=== PATIENT | female | born 2000 | race Two or more races ===

== ENCOUNTER 2024-11-12 23:05 | Emergency (ER) | payer MEDICAID, SELFPAY ==
[2024-11-12 23:24] VITALS: PULSE 95; RESP 18; O2SAT 99; BMI 34.9
[2024-11-13] VITALS (7 sets, daily range): BP systolic 117–138; BP diastolic 76–99; PULSE 84–96; RESP 18; TEMP 36.9; O2SAT 98–99
--- NOTE | 2024-11-13 00:13 | EDNOTE_ITS ---
ED Weakness RME/HPI General Chief complaint: Weakness Stated complaint: WEAKNESS Time Seen by Provider: 11/12/24 23:14 Arrival date/time: 11/12/24 23:05 RME / HPI RME / HPI Narrative: Dr. Us?s Main ED Evaluation: 24yo female with a history of seizure disorder on Keppra 500mg BID BIBA from home presents to the ED for a chief complaint of an oncoming seizure. Patient states she started feeling dizzy and having blurry vision, reporting those are the usual symptoms before she has a seizure, so she called 911 so she could come in for evaluation. Patient states she currently has a stabbing temporal headache. She denies any other associated symptoms. Patient states she is in the process of seeing a new neurologist and has an appointment later this month. Related Data Home Medications ?Medication ?Instructions ?Recorded ?Confirmed No Known Home Medications 10/21/21 10/21/21 Allergies Allergy/AdvReac Type Severity Reaction Status Date / Time sulfamethoxazole Allergy Mild Palpitation Verified 10/21/21 13:02 s trimethoprim Allergy Mild Palpitation Verified 10/21/21 13:02 s Review of Systems Review of Systems Systems Reviewed: All systems reviewed, normal except as documented ED Exam Narrative Physical exam: GENERAL APPEARANCE: alert and oriented x 4, well-developed, well-nourished, no acute distress VITALS: All vitals were reviewed and the pulse ox is 99% on room air, which is normal according to my interpretation. HEENT: Normocephalic, atraumatic; pupils equal, round, reactive to light; EOMI; mucous membranes pink, moist; oropharynx clear NECK: Supple LUNGS: CTABL; no wheezes, no rales, no rhonchi HEART: Regular rate, regular rhythm; normal S1, S2; no murmurs ABDOMEN: non distended; normal BS; soft, no tenderness, no guarding, no rebound; no masses, no organomegaly, no hernia BACK: no CVA tenderness EXTREMITIES: atraumatic; no edema NEUROLOGIC: awake; alert and oriented x4; cranial nerves II-XII grossly intact; no focal sensory or motor deficits PSYCHIATRIC: appropriate mood and affect SKIN: warm, dry, normal color; no rashes Course Course Course Narrative: The patient was placed in ED observation care at 11/12/24 at 2339 hours. The patient was placed in ED observation care to monitor for any seizure activity. The patients past medical history, social history, and family history were reviewed. The plan of care will include serial examinations. 0326: Patient has been under observation for the last several hours without any seizure activity. Patient is stable to be discharged home. At this time, observation has ended. Quality Measures none Orders Category Date Time Status Fibreglass Laminator Q4H START 00 Care 11/13/24 00:29 Completed Continuous Pulse Oximetry NOW Care 11/13/24 00:29 Completed Acetaminophen Ivpb [Ofirmev Inj] Med 11/12/24 23:15 Discontinued 1,000 mg in 100 ml IV X1 Ketorolac Inj [Toradol Inj] Med 11/12/24 23:14 Discontinued 15 mg IVP X1 ONE LORazepam [Ativan] Med 11/13/24 01:31 Discontinued 0.5 mg PO X1 ONE Lidocaine 5% Patch Med 11/12/24 23:14 Discontinued 1 patch TOP X1 ONE Vital Signs Vital signs: Vital Signs Temperature 98.4 F 11/13/24 00:39 Pulse Rate 87 11/13/24 00:39 Respiratory Rate 18 11/13/24 00:39 Blood Pressure 131/87 H 11/13/24 00:39 Pulse Oximetry (%) 98 11/13/24 00:39 Oxygen Delivery Method Room Air 11/13/24 00:39 Weakness MDM Narrative MDM Narrative:: Scribe Attestation: 11/13/24 Elise Salvador am scribing for and in the presence of Dr. Us. Patient data External records reviewed:: [facility] previous records (Per chart review, patient was seen here on 05/21/24 for seizure disorder.) Clinical information provided by:: patient Social determinants that could affect healthcare access:: mental health Patient has the following chronic illnesses:: seizures, antiphospholipid syndrome, anxiety How is presenting disease/condition affected by chronic disease/condition?: caused by Evaluation data The following diagnostics were reviewed and interpreted by me:: other (specify) (none) Lab and/or radiology exams considered but not ordered:: none Interpretation Summary: see above Medications / Prescriptions Medications or Prescriptions considered but not ordered:: none Medication administrations:: Medication Administration History Discontinued Medications Acetaminophen (Ofirmev Inj) 1,000 mg in 100 mls @ 250 mls/hr IV X1 ONE Stop: 11/12/24 23:38 Last Admin: 11/12/24 23:21 Dose: Not Given Documented By: PHYLICIA Non-Admin Reason: Discontinued Ketorolac Tromethamine (Ketorolac Inj 30 Mg/Ml Vial) 15 mg IVP X1 ONE Stop: 11/12/24 23:15 Last Admin: 11/12/24 23:20 Dose: Not Given Documented By: PHYLICIA Non-Admin Reason: Cancelled by Provider Lidocaine (Lidocaine 5% 1 Patch) 1 patch TOP X1 ONE Stop: 11/12/24 23:15 Last Admin: 11/12/24 23:20 Dose: Not Given Documented By: PHYLICIA Non-Admin Reason: Cancelled by Provider Lorazepam (Lorazepam 0.5 Mg Tablet) 0.5 mg PO X1 ONE Stop: 11/13/24 01:32 Last Admin: 11/13/24 01:53 Dose: 0.5 mg Documented By: KAYODE see above Consultations Consultation(s) initiated? (list below): No Diagnosis Weakness Differential Diagnosis: other (seizure disorder, anxiety, panic attack, anxiety reaction) Most likely diagnosis given after review of the tests above:: see above Admission Indicated Admission indicated?: not indicated Admission Request Was there a request for admission?: No Disposition Plan Disposition Plan: Discharge Discharge Attestation Discharge Attestation: The patient and all family members were given an opportunity to ask questions and understood the discharge instructions. Discharge instructions specifically effects, indications for sooner follow up or return to the emergency department, and the expected course of current diagnosis. Patient condition: Stable Discharge Plan Plan Patient Disposition: HOME (Self Care) Disposition Comment: Stable for discharge Patient condition on transfer: Stable Prescriptions/Referrals Prescriptions/Med Rec: No Action No Known Home Medications Referrals: Irma Bernal PA-C [Primary Care Provider] - In 1 week Problem List Clinical Impression: Aura Patient/Caregiver Discharge Instructions Discharge Activity: activity as tolerated Education Materials: ED Symptoms With Uncertain Cause Additional Instructions: Please return to the emergency department for any worsening or any further medical problems Otherwise you should follow-up with your primary care doctor within the next several days Print Language: Malawian Stand Alone Forms: Vane Award Info., Patient Portal Info Letter
[2024-11-13] MEDS: LORazepam 0.5 MG TABLET PO (01:53)
== END 2024-11-13 04:32 | disposition home or self-care (01) ==
PROVIDERS: Emergency Provider Emergency Medicine; PCP Physician Assistant
DX: H70.10 Chronic mastoiditis, unspecified ear (principal)
CPT/HCPCS: 99283; A9270

== ENCOUNTER 2025-03-08 17:03 | Emergency (ER) | payer MEDICAID, SELFPAY ==
[2025-03-08 17:05] VITALS: BMI 34.9
--- NOTE | 2025-03-08 17:14 | EKG_ITS ---
[facility] Test Date: 2025-03-08 Pat Name: TAYLOR MCKEON Department: Room: - Gender: Female Supervisor [employer]: : 2000 Requested By: ED Temporary Provider Order Number: [id number] Reading MD: ED Temporary Provider Measurements Intervals [place] Rate: 65 P: 43 NH: 155 QRS: 29 QRSD: 80 T: 18 QT: 356 QTc: 372 Interpretive Statements SINUS RHYTHM Compared to ECG 05/21/2024 14:54:02 T-wave abnormality no longer present /store/S0/[id number]
[2025-03-08 17:25] VITALS: BP 140/96; PULSE 73; RESP 16; TEMP 37.2; O2SAT 96
--- NOTE | 2025-03-08 17:40 | XR_ITS ---
Examination: PA lateral chest 2 views TECHNIQUE: Upright PA lateral chest 2 views Exam date and time: March 08, 2025, 1817 hours INDICATIONS: Dizziness weakness chest pain today FINDINGS: Normal heart size Lungs are clear. The osseous structures are intact IMPRESSION: No active disease
--- NOTE | 2025-03-08 17:41 | PD.EDRME ---
Rapid Medical Screening Exam RME Arrival date/time: 03/08/25 17:03 This is a 24-year-old female that has a history of epilepsy. Patient states that she was recently seen by Dr. Laird public health sanitarian technician and is currently being worked up for a possible atrial thrombus patient has a echo at hand. There is also suspicion of a tricuspid valve vegetation. Patient denies fever or chills. Patient reports dizziness and shortness of breath. I have greeted and performed a focused initial assessment of this patient. Initial appropriate labs ordered at this time. A comprehensive ED assessment and evaluation of the patient and analysis of all test and completion of medical decision making process will be conducted by additional ED provider. Chief Complaint: Chest Pain Time Seen by Provider: 03/08/25 17:06 Vital signs: Vital Signs Temperature 99.0 F 03/08/25 17:25 Pulse Rate 73 03/08/25 17:25 Respiratory Rate 16 03/08/25 17:25 Blood Pressure 140/96 H 03/08/25 17:25 Pulse Oximetry (%) 96 03/08/25 17:25 Oxygen Delivery Method Room Air 03/08/25 17:25
[2025-03-08 18:06] LABS: Lactate (Lactic Acid) 1.7 mMol/L (0.4-2.0)
[2025-03-08 18:09] LABS: Basophils % (Auto) 0 % (0-2.5); Eosinophils # (Auto) 0.2 Thou/mm3 (0.0-0.5); Eosinophils % (Auto) 2 % (0-10); Hematocrit 41.1 % (36.0-46.0); Immature Granulocytes % (Auto) 1 % (0-0); Immature Granulocytes Auto 0.04 Thou/mm3 (0.00-0.00); Lymphocytes # (Auto) 1.9 Thou/mm3 (1.0-4.8); Lymphocytes % (Auto) 23 % (10-50); Mean Corpuscular HGB Conc 34.1 g/dl (31.0-37.0); Mean Corpuscular Hemoglobin 26.2 pg (25.0-35.0); Mean Corpuscular Volume 77 fL (80-100); Monocytes # (Auto) 0.6 Thou/mm3 (0.0-0.8); Monocytes % (Auto) 7 % (0-12); Neutrophils # (Auto) 5.4 Thou/mm3 (1.8-7.7); Neutrophils % (Auto) 67 % (37-80); Nucleated Red Blood Cell % 0 /100 WBC (0); Platelet Count 117 Thou/mm3 (140-440); RDW Standard Deviation 37.1 fL (36.4-46.3); Red Blood Count 5.35 Miln/mm3 (4.00-5.20); White Blood Count 8.2 Thou/mm3 (3.6-11.0)
[2025-03-08 18:25] LABS: B-Type Natriuretic Peptide 43 pg/mL (0-100)
[2025-03-08 18:27] LABS: Alanine Aminotransferase 51 U/L (10-49); Albumin, Serum 4.7 gm/dL (3.5-5.0); Albumin/Globulin Ratio 1.7 (1.2-2.2); Alkaline Phosphatase 102 U/L (46-116); Anion Gap 8 (7-16); Aspartate Amino Transferase 32 U/L (0-34); BUN/Creatinine Ratio 7 Ratio (12-20); Bilirubin,Total 0.9 mg/dL (0.3-1.2); Blood Urea Nitrogen 5 mg/dL (9-23); Calcium 9.7 mg/dL (8.3-10.6); Calcium (Corrected) 9.7 mg/dL (8.5-10.1); Carbon Dioxide 25.3 mMol/L (20.0-31.0); Chloride 104 mMol/L (98-107); Creatinine (Component) 0.7 mg/dL (0.6-1.3); Estimated Creatinine Clearance 95.9 mL/min (>60); Globulin 2.8 gm/dL (2.3-3.5); Glucose 93 mg/dL (74-106); Osmolality,Calculated 271 (275-295); Potassium 3.8 mMol/L (3.4-5.1); Sodium 137 mMol/L (136-145); Total Protein 7.5 gm/dL (5.7-8.2); Troponin I < 0.002 ng/mL (0.0-0.045); eGFR > 60 See Note
[2025-03-08 18:34] LABS: Procalcitonin 0.06 ng/ml (0.0-0.49)
--- NOTE | 2025-03-08 20:46 | PD.EDCHEST ---
ED Chest Pain RME/HPI General Chief Complaint: Chest Pain Stated Complaint: INTERMITTENT CHEST PAIN Time Seen by Provider: 03/08/25 17:06 Arrival date/time: 03/08/25 17:03 RME / HPI RME / HPI narrative: 24-year-old female that has a history of epilepsy. Patient states that she was recently seen by Dr. Laird residential building inspector and is currently being worked up for a possible atrial thrombus patient has a echo at hand. There is also suspicion of a tricuspid valve vegetation. Patient denies fever or chills. Patient reports dizziness and shortness of breath. Denies any cough. Denies any other complaints. Related Data Home Medications ?Medication ?Instructions ?Recorded ?Confirmed No Known Home Medications 10/21/21 10/21/21 Allergies Allergy/AdvReac Type Severity Reaction Status Date / Time sulfamethoxazole Allergy Mild Palpitation Verified 03/08/25 17:07 s trimethoprim Allergy Mild Palpitation Verified 03/08/25 17:07 s Review of Systems Review of Systems Narrative Review of Systems: Review of system reviewed and within normal limits except mentioned in HPI ED Exam Narrative Physical exam: VITAL SIGNS: Reviewed. GENERAL APPEARANCE: Alert and interactive, follows commands, no acute distress, HEAD AND FACE: Non-traumatic. ENT: PERRL, pink conjunctivitis, eyelid no trauma, Mucous membrane moist. NECK: Supple, nontender, no nuchal rigidity. CHEST: No tenderness, no crepitus, no paradoxical movement, no retractions. LUNGS: Clear, well ventilated, symmetric, no rales, no wheezing, no ronchi, no stridor, good breath sounds bilaterally. HEART: Regular rate, regular rhythm, no murmur, no gallops. ABDOMEN: Soft, positive bowel sounds, nondistended, no guarding, nontender, no rebound, no masses, RECTAL: Deferred. GENITAL: Deferred. NEUROLOGICAL: Gross motor function intact sensory function intact, Appropriate for age. MUSCULOSKELETAL: low back nontender, full range of motion. EXTREMITIES: Nontender, full range of motion. SKIN: Color pink, dry, no rash, no lacerations, no abrasions, no contusions. LYMPHATICS: Deferred. Course Quality Measures none Orders Category Date Time Status EKG (ED ONLY) *Do not use* NOW Care 03/08/25 17:14 Completed EKG (ED Only) Stat Exams 03/08/25 17:14 Draft XR chest 2V Stat Exams 03/08/25 17:40 Completed BNP [B-Type Natriuretic Peptide] Stat Lab 03/08/25 17:53 Completed Blood Culture (Lab) Stat Lab 03/08/25 17:58 Received CBC Stat Lab 03/08/25 17:53 Completed Comprehensive Metabolic Panel Stat Lab 03/08/25 17:53 Completed Lactate (Lactic Acid) Stat Lab 03/08/25 17:53 Completed Procalcitonin Stat Lab 03/08/25 17:53 Completed Troponin I Stat Lab 03/08/25 17:53 Completed Vital Signs Vital signs: Vital Signs Temperature 99.0 F 03/08/25 17:25 Pulse Rate 73 03/08/25 17:25 Respiratory Rate 16 03/08/25 17:25 Blood Pressure 140/96 H 03/08/25 17:25 Pulse Oximetry (%) 96 03/08/25 17:25 Oxygen Delivery Method Room Air 03/08/25 17:25 Chest Pain MDM Narrative MDM Narrative:: 24-year-old female that has a history of epilepsy. Patient states that she was recently seen by Dr. Laird residential building inspector and is currently being worked up for a possible atrial thrombus patient has a echo at hand. There is also suspicion of a tricuspid valve vegetation. Patient denies fever or chills. Patient reports dizziness and shortness of breath. Denies any cough. Denies any other complaints. Patient's CBC showed no leukocytosis. CMP unremarkable troponin is normal Pro-Alec is normal chest x-ray came back unremarkable EKG as interpreted by me showed sinus rhythm, ventricular rate of 65 bpm, no ST segment elevation depression noted. Patient was advised to follow-up with residential building inspector in 1 to 2 days probably Monday or return to emergency room for fever, worsening chest pain, vomiting, and shortness of breath. Patient agrees with the plan. 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 (list below): No Diagnosis Chest Pain Differential Diagnosis: stable angina and chest pain Most likely diagnosis given after review of the tests above:: Intermittent chest pain Admission Indicated Admission indicated?: not indicated Admission Request Was there a request for admission?: No Disposition Plan Disposition Plan: Discharge Discharge Attestation Discharge Attestation: The patient was given an opportunity to ask questions and understood the discharge instructions. Discharge instructions specifically effects, indications for sooner follow up or return to the emergency department, and the expected course of current diagnosis. Patient condition: Stable Discharge Plan Plan Patient Disposition: HOME (Self Care) Prescriptions/Referrals Prescriptions/Med Rec: No Action No Known Home Medications Referrals: Irma Bernal PA-C [Primary Care Provider] - In 1 week Problem List Clinical Impression: Intermittent chest pain Patient/Caregiver Discharge Instructions Discharge Activity: activity as tolerated Education Materials: Understanding the Pain Response Additional Instructions: Thank you for the opportunity for serving you today. You are stable for discharged . You are advised to: Follow-up with your residential building inspector in 1 to 2 days Return to ED for worsening of symptoms Print Language: Croatian Stand Alone Forms: Vane Award Info., Patient Portal Info Letter MARCOS Supervising Physician MARCOS Supervising Physician: MD Fay
== END 2025-03-08 20:55 | disposition home or self-care (01) ==
PROVIDERS: Nurse Practitioner Family; Emergency Provider Emergency Medicine; PCP Physician Assistant
DX: R07.89 Other chest pain (principal); R42 Dizziness and giddiness; R53.1 Weakness
CPT/HCPCS: 36415; 71046; 80053; 83605; 83880; 84145; 84484; 85025; 87040; 93005; 99283

== ENCOUNTER 2025-09-26 18:50 | Inpatient (IN) | payer MEDICAID, SELFPAY ==
[2025-09-26 18:52] VITALS: BMI 38.0
[2025-09-26 19:10] VITALS: BP 142/97; PULSE 83; RESP 18; TEMP 36.8; O2SAT 97
--- NOTE | 2025-09-26 19:40 | EDRME_ITS ---
Rapid Medical Screening Exam [facility] Arrival date/time: 09/26/25 18:50 Chief Complaint: Seizure Vital signs: Vital Signs Temperature 98.2 F 09/26/25 19:10 Pulse Rate 83 09/26/25 19:10 Respiratory Rate 18 09/26/25 19:10 Blood Pressure 142/97 H 09/26/25 19:10 Pulse Oximetry (%) 97 09/26/25 19:10 Oxygen Delivery Method Room Air 09/26/25 19:10 RM Narrative: 24-year-old female with a past medical history of multifocal epileptic seizures who is currently on Aptiom 1200 mg daily, Keppra 500 mg daily and this was raised by Dr. Orta last in July from 800 to this as she was been having breakthrough seizures for this year. Patient endorses that she remains conscious during her seizures she has had about 3 seizures at day for the past 3 days all lasting about 30 minutes at a time, and her sister told her that she seems really out of it so she wanted her to come here and get checked out she states that now she does not lose consciousness with her seizures but she feels short of breath dizzy and feels a heat sensation. Patient states that she feels hot but denies any cough, head injury, chest pain, vision changes, numbness, tingling, weakness or urinary symptoms. Past medical history of antiphospholipid syndrome on Plaquenil as well as an arterial thrombus on Eliquis Exam: Constitutional: Vital Signs Reviewed. Well appearing. No acute distress. Not toxic appearing. Head: Normocephalic, atraumatic. Eyes: Conjunctiva clear. ENT: Mucous membranes moist. Neck: Trachea midline. Normal range of motion. No nuchal rigidity. Respiratory: Normal effort. No respiratory distress or accessory muscle use. Neuro: Alert and oriented. Speech normal. No focal gross motor or sensory deficits observed. Skin: Warm, dry, normal color. Psych: Pleasant. Normal affect. Cooperative. Clinical Impression: Breakthrough seizures
--- NOTE | 2025-09-26 19:43 | XR_ITS ---
EXAMINATION: PA lateral chest 2 views TECHNIQUE: PA lateral chest 2 views Date and time: September 26, 2025, 2032 hours INDICATIONS: Shortness of breath today. FINDINGS: Normal heart size No lobar pneumonia or pulmonary edema 29 mm pulmonary mass which projects in the right middle lobe The [place] structures are intact IMPRESSION: Recommend CT chest follow-up to assess 29 mm pulmonary mass which projects in the right middle lobe
--- NOTE | 2025-09-26 19:43 | XR_ITS ---
Examination: CT brain head without contrast. 2-D sagittal coronal reconstructions Date and time of exam: September 26, 2025, 195 hours, comparison December 07, 2023 INDICATIONS: Headache status post seizure today, seizure 3 years ago CTDI: vol (mGy): 48.7 DLP: (mGycm): 959 Technique: Multiple CT axial sections of the brain have been obtained, 5 mm slice thickness. Contrast has not been administered. 2-D sagittal, coronal reconstructions have been obtained Low dose protocols were performed. One or more of the following dose reduction techniques were used; automated exposure control, adjustment of the mA and/or KV according to patient size, use of iterative reconstruction technique. Findings: Stable mild ventricular enlargement. Intra-axial or extra-axial hemorrhage density is not seen. No mass effect or midline shift Basal cisterns are not remarkable. Fourth ventricle is midline. Cranial vault intact. Impression: Negative for acute hemorrhage, mass effect or midline shift Consider repeat brain MRI follow-up pre and post contrast, seizure protocol
--- NOTE | 2025-09-26 19:43 | EKG_ITS ---
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
[2025-09-26 20:42] LABS: Basophils # (Auto) 0.0 Thou/mm3 (0.0-0.2); Basophils % (Auto) 0 % (0-2.5); Eosinophils # (Auto) 0.1 Thou/mm3 (0.0-0.5); Eosinophils % (Auto) 2 % (0-10); Hematocrit 41.2 % (36.0-46.0); Hemoglobin 13.8 g/dL (12.0-16.0); Immature Granulocytes Auto 0.02 Thou/mm3 (0.00-0.00); Lymphocytes # (Auto) 1.7 Thou/mm3 (1.0-4.8); Lymphocytes % (Auto) 22 % (10-50); Mean Corpuscular HGB Conc 33.5 g/dl (31.0-37.0); Mean Corpuscular Hemoglobin 25.8 pg (25.0-35.0); Mean Corpuscular Volume 77 fL (80-100); Monocytes # (Auto) 0.6 Thou/mm3 (0.0-0.8); Monocytes % (Auto) 8 % (0-12); Neutrophils # (Auto) 5.3 Thou/mm3 (1.8-7.7); Neutrophils % (Auto) 68 % (37-80); Nucleated Red Blood Cell # 0.00 Thou/mm3 (0.00-0.00); Nucleated Red Blood Cell % 0 /100 WBC (0); Platelet Count 101 Thou/mm3 (140-440); RDW Standard Deviation 34.9 fL (36.4-46.3); Red Blood Count 5.35 Miln/mm3 (4.00-5.20); White Blood Count 7.8 Thou/mm3 (3.6-11.0)
[2025-09-26 20:42] LABS: Collection Type, Urine Voided
[2025-09-26 21:01] LABS: INR 1.0 (0.9-1.3); Partial Thromboplastin Time 40.2 Seconds (22.0-36.0); Prothrombin Time 11.0 Seconds (9.0-12.2)
[2025-09-26 21:09] LABS: Amphetamine/Methamp Scrn,U Negative (Negative); Barbiturate Screen,Urine Negative (Negative); Benzodiazepines Screen,Urine Negative (Negative); Benzoylecgonine Screen, Ur Negative (Negative); Fentanyl Screen,Urine Negative (Negative); Opiate Screen,Urine Negative (Negative); THC Screen,Urine Negative (Negative)
--- NOTE | 2025-09-26 21:09 | EDNOTE_ITS ---
ED Seizures RME/HPI General Chief Complaint: Seizure Stated Complaint: INCREASED SZ ACTIVITY +HX OF SZ Time Seen by Provider: 09/26/25 20:56 Arrival date/time: 09/26/25 18:50 RME / HPI RME / HPI Narrative: 24-year-old female with a past medical history of multifocal epileptic seizures who is currently on Aptiom 1200 mg daily, Keppra 500 mg daily and this was raised by Dr. Orta last in July from 800 to this as she was been having breakthrough seizures for this year. Patient endorses that she remains conscious during her seizures she has had about 3 seizures at day for the past 3 days all lasting about 30 minutes at a time, and her sister told her that she seems really out of it so she wanted her to come here and get checked out she states that now she does not lose consciousness with her seizures but she feels short of breath dizzy and feels a heat sensation. Patient states that she feels hot but denies any cough, head injury, chest pain, vision changes, numbness, tingling, weakness or urinary symptoms. Headache Exam: Constitutional: Vital Signs Reviewed. Well appearing. No acute distress. Not toxic appearing. Head: Normocephalic, atraumatic. Eyes: Conjunctiva clear. ENT: Mucous membranes moist. Neck: Trachea midline. Normal range of motion. No nuchal rigidity. Respiratory: Normal effort. No respiratory distress or accessory muscle use. Neuro: Alert and oriented. Speech normal. No focal gross motor or sensory deficits observed. Skin: Warm, dry, normal color. Psych: Pleasant. Normal affect. Cooperative. Impression: Breakthrough seizures Related Data Home Medications ?Medication ?Instructions ?Recorded ?Confirmed No Known Home Medications 10/21/21 1208/03 Allergies Allergy/AdvReac Type Severity Reaction Status Date / Time sulfamethoxazole Allergy Mild Palpitation Verified 03/08/25 17:07 s trimethoprim Allergy Mild Palpitation Verified 03/08/25 17:07 s ED Exam Narrative Physical exam: General Appearance: Alert & Oriented X3, well-nourished female who is lying in bed in no acute distress HEENT: Skull symmetrical and atraumatic. Conjunctivae pin and moist. Pupils equal, round, reactive to light and accommodation (PERRL). External ear without lesion or discharge. Straight, nares patient, mucosa pink, no discharge. Cardio: Normal Rate and Rhythm with S1 and S2 heart sounds. No murmurs or extra heart sounds auscultated. No bruits on carotid auscultation. No peripheral edema or cyanosis. Lungs: Symmetric with good expansion. Chest and back non-tender. Breath sounds vesicular without crackles, wheezing or rhonchi Abdomen: Non-tender, Non-distended, Normal Reactive Bowel Sounds Neuro: Alert, cooperative, oriented to person, place, and time. Speech clear. CN grossly intact. Upper motor strength 5/5 and Lower motor strength 5/5. Sensation intact. Course Course Course Narrative: CBC CMP CK Lactic Acid, CT head, EKG, Chest x-ray Quality Measures none Orders Category Date Time Status EKG (ED ONLY) *Do not use* NOW Care 09/26/25 19:43 Completed Consult to Neurology / Tele-Neurology Stat Cons 09/26/25 22:[address] head/brain wo con Stat Exams 09/26/25 19:43 Completed EKG (ED Only) Stat Exams 09/26/25 19:43 Draft XR chest 2V Stat Exams 09/26/25 19:43 Completed Alcohol, Blood Medical Stat Lab 09/26/25 20:04 Completed CBC Stat Lab 09/26/25 20:04 Completed CK [Creatine Kinase] Stat Lab 09/26/25 21:19 Completed CMP [Comprehensive Metabolic Panel] Stat Lab 09/26/25 20:04 Completed Drug Screen,Urine Stat Lab 09/26/25 20:14 Completed HCG Qualitative,Urine Stat Lab 09/26/25 20:14 Completed INR [Prothrombin Time with INR] Stat Lab 09/26/25 20:04 Completed Lactate (Lactic Acid) Stat Lab 09/26/25 21:19 Completed Lipase Stat Lab 09/26/25 20:04 Completed Magnesium Stat Lab 09/26/25 20:04 Completed Partial Thromboplastin Time Stat Lab 09/26/25 20:04 Completed TSH [Thyroid Stimulating Hormone] Stat Lab 09/26/25 20:04 Completed Troponin I Stat Lab 09/26/25 20:04 Completed UA, C/S IF [Urinalysis, C/S if Indicated] Stat Lab 09/26/25 20:14 Completed Ketorolac Inj [Toradol Inj] Med 09/26/25 22:42 Discontinued 30 mg IVP X1 ONE Ringers Lactated 1000 ml [Lactated Ringers] 1,000 ml Med 09/26/25 22:29 Discontinued IV 999 mls/hr EEG Awake and Drowsy Routine RT 09/26/25 22:30 Ordered Vital Signs Vital signs: Vital Signs Temperature 98.2 F 09/26/25 19:10 Pulse Rate 83 09/26/25 19:10 Respiratory Rate 18 09/26/25 19:10 Blood Pressure 142/97 H 09/26/25 19:10 Pulse Oximetry (%) 97 09/26/25 19:10 Oxygen Delivery Method Room Air 09/26/25 19:10 Seizure Patient data External records reviewed:: [facility] previous records Clinical information provided by:: patient Social determinants that could affect healthcare access:: none Patient has the following chronic illnesses:: hx of seizures/Multi-focal seizures How is presenting disease/condition affected by chronic disease/condition?: exacerbated by (hx of multifocal seizures) Evaluation data The following diagnostics were reviewed and interpreted by me:: lab results and radiology exam(s) Lab and/or radiology exams considered but not ordered:: None Interpretation Summary: Patient is a 24-year-old female with a past medical history of multifocal seizures who follows Dr. Montero. Patient presented with chief complain of breakthrough seizure with symptoms of confusion last several minutes, dizzines, but denied any falls or trauma to head. No Leukocytosis noted. No anemia noted. Electrolytes within normal limits, lactic acid 1.9, CK within normal limits 51, EKG no ST elevation and Troponin negative. UA negative. TSH within normal limits. Chest x-ray noted a 29 mm pulmonary mass which as not present before on previous chest x-rays. Denied cough or fever. Patient is compliant with anti- seizure medication. Concern for breakthrough seizure, may require Eslicarbazepine adjustment. Keppra is currently being weaned off by neurology. consider admission under observations for breakthrough seizure--> EEG & Eslicarbazepine adjustment. - The patient's plan was discussed with attending Dr. Magen Fernandez MD PGY2 Internal Medicine Medications / Prescriptions Medications or Prescriptions considered but not ordered:: None Medication administrations:: Medication Administration History Acetaminophen (Acetaminophen 325 Mg Tablet) 650 mg PO Q6H PRN PRN Reason: Fever >100.4 or pain 1-3 Stop: 10/26/25 23:05 Apixaban (Apixaban 2.5 Mg Tablet) 5 mg PO BID [facility] Stop: 10/27/25 08:59 Carbamazepine (Carbamazepine 200 Mg Tablet) 300 mg PO BID [facility] Stop: 10/27/25 08:59 Carvedilol (Carvedilol 3.125 Mg Tablet) 3.125 mg PO BID [facility] Stop: 10/27/25 08:59 Docusate Sodium (Docusate Sod 100 Mg Capsule) 100 mg PO QDAY [facility]; Protocol Stop: 10/27/25 08:59 Duloxetine HCl (Duloxetine Hcl 20 Mg Capsule) 25 mg PO QDAY [facility] Stop: 10/27/25 08:59 Famotidine (Famotidine Inj 10 Mg/Ml Vial 2 Ml) 20 mg IVP Q12HR [facility] Stop: 10/27/25 08:59 Hydroxychloroquine Sulfate (Hydroxychloroquine 200 Mg Tablet) 200 mg PO QDAY [facility] Stop: 10/04/25 08:59 Levetiracetam (Levetiracetam 250 Mg Tablet) 500 mg PO QDAY [facility] Stop: 10/27/25 08:59 Ondansetron HCl (Ondansetron Inj 2 Mg/Ml Inj 2 Ml) 4 mg IVP Q6H PRN; Protocol PRN Reason: NAUSEA OR VOMITING Stop: 10/26/25 23:05 Discontinued Medications Lactated Ringer's (Lactated Ringers) 1,000 mls @ 999 mls/hr IV .Q1H1M ONE Stop: 09/26/25 23:29 Last Admin: 09/26/25 23:17 Dose: 999 mls/hr Documented By: NASEEM Ketorolac Tromethamine (Ketorolac Inj 30 Mg/Ml Vial) 30 mg IVP X1 ONE Stop: 09/26/25 22:43 Last Admin: 09/26/25 23:18 Dose: Not Given Documented By: NASEEM Non-Admin Reason: Patient Refused None Consultations Consultation(s) initiated? (list below): Yes Consultation #1 (Physician, Specialty, Details): Dr. Montero 10:30 PM Diagnosis Seizure Differential Diagnosis: intractable seizure disorder, status epilepticus and other (breakthrough seizure ) Most likely diagnosis given after review of the tests above:: Patient is a 24-year-old female with a past medical history of multifocal seizures who follows Dr. Montero. Patient presented with chief complain of breakthrough seizure with symptoms of confusion last several minutes, dizzines, but denied any falls or trauma to head. No Leukocytosis noted. No anemia noted. Electrolytes within normal limits, lactic acid 1.9, CK within normal limits 51, EKG no ST elevation and Troponin negative. UA negative. TSH within normal limits. Chest x-ray noted a 29 mm pulmonary mass which as not present before on previous chest x-rays. Denied cough or fever. Patient is compliant with anti- seizure medication. Concern for breakthrough seizure, may require Eslicarbazepine adjustment. Keppra is currently being weaned off by neurology. #Breakthrough seizure consider admission under observations for breakthrough seizure--> EEG & Eslicarbazepine adjustment. - The patient's plan was discussed with attending Dr. Magen Fernandez MD PGY2 Internal Medicine Admission Indicated Admission indicated?: indicated Explain why admission is indicated or not indicated:: Concern for breakthrough seizure, EEG and possible adjustments of of medication Admission Request Was there a request for admission?: Yes Admission Attestation Admission request attestation: Discussed case with Dr. Brown, PGY-2 from Hospitalist service regarding admission. Discussed patients ED course, exam findings, labs, and radiology results. The Hospitalist agrees to accept the patient for admission. Disposition Plan Disposition Plan: Admit (obs) Discharge Plan Plan Patient Disposition: Admit Acute Care w/in Hospital Patient condition on transfer: Stable Problem List Clinical Impression: Breakthrough seizure
[2025-09-26 21:10] LABS: Amorphous Crystals,Urine Present (Absent); Bacteria,Urine Rare; Bilirubin,Urine Negative (Negative); Blood,Urine Negative (Negative); Clarity,Urine Clear (Clear/Hazy); Color,Urine Lt-Yellow (Lt Yel-Yel); Culture Indicated,Urine Not Indicated; Glucose, Urine Negative (Negative); Ketones,Urine Negative (Negative); Leukocyte Esterase,Urine Negative (Negative); Nitrite,Urine Negative (Negative); PH,Urine 6.0 (5.0-7.0); Protein,Urine Negative (Neg - Trace); RBC,Urine 2 /hpf (0-3); Specific Gravity,Urine 1.016 (1.001-1.035); Squamous Epithelial Cell,Urine 6 /hpf (0-5); Urobilinogen,Urine Negative mg/dL (0.0-1.0); WBC,Urine 1 /hpf (0-5)
[2025-09-26 21:13] LABS: HCG Qualitative,Urine Negative
[2025-09-26 21:20] LABS: Alanine Aminotransferase 52 U/L (10-49); Alcohol, Blood Medical < 3.0 mg/dL (0-10.0); Anion Gap 7 (7-16); Aspartate Amino Transferase 30 U/L (0-34); BUN/Creatinine Ratio 10 Ratio (12-20); Bilirubin,Total 0.4 mg/dL (0.3-1.2); Blood Urea Nitrogen 7 mg/dL (9-23); Calcium 9.4 mg/dL (8.3-10.6); Carbon Dioxide 27.9 mMol/L (20.0-31.0); Chloride 105 mMol/L (98-107); Creatinine (Component) 0.7 mg/dL (0.6-1.3); Estimated Creatinine Clearance 100.5 mL/min (>60); Glucose 90 mg/dL (74-106); Lipase 38 U/L (12-53); Magnesium 1.9 mg/dL (1.6-2.6); Osmolality,Calculated 277 (275-295); Potassium 4.5 mMol/L (3.4-5.1); Sodium 140 mMol/L (136-145); Thyroid Stimulating Hormone 1.20 uIU/mL (0.55-4.78); Total Protein 7.1 gm/dL (5.7-8.2); Troponin I < 0.002 ng/mL (0.0-0.045); eGFR > 60 See Note
[2025-09-26 21:25] LABS: Lactate (Lactic Acid) 1.6 mMol/L (0.4-2.0)
[2025-09-26 21:25] LABS: Albumin, Serum 4.8 gm/dL (3.5-5.0); Albumin/Globulin Ratio 2.1 (1.2-2.2); Alkaline Phosphatase 107 U/L (46-116); Calcium (Corrected) 9.4 mg/dL (8.5-10.1); Globulin 2.3 gm/dL (2.3-3.5)
[2025-09-26 21:53] LABS: Creatine Kinase 51 U/L (34-171)
[2025-09-26 23:06] VITALS: BP 138/116; PULSE 78; RESP 18; TEMP 36.4; O2SAT 97
[2025-09-26] MEDS: RINGERS LACTATED 1000 ML 1,000 ML 999 ML IV (23:17)
--- NOTE | 2025-09-26 23:27 | PD.RESHP ---
Documentation for date of: 09/26/25 [facility] History of Present Illness History of present illness: 24-year-old female with a past medical history of multifocal epileptic seizures, antiphospholipid syndrome, depression, atrial thrombus (eliquis and coreg) who is currently on Aptiom 1200 mg daily, Keppra 500 mg daily, who presented to ED after sister noted her to be somewhat out of it concerning for post-ictal state of seizures. At the request of Dr. Montero patient will be admitted for observation and EEG in the AM for evaluation of seizure activity. ED Course Summary Vitals: BP 142/97 HR 83 RR 18 T 98.2F O2 sat 97% Labs: Plt 101, APTT 40.2 UA unremarkable other than few sq. epithelial cells Imaging: EKG sinus rhythm with sinus arrhythmia QTc [address] Negative for acute hemorrhage, mass effect or midline shift CXR Normal heart size No lobar pneumonia or pulmonary edema 29 mm pulmonary mass which projects in the right middle lobeThe Lawrence structures are intact Treatment: LR 1 L Consults and why: Neurology Dr. Montero Patient reports yesterday she had one tonic clonic seizure but 2 seizures overall. Today she had 3 seizures that felt like shortness of breath, dizziness, and weakness, Her sister saw her tonight and thought she looked post-ictal as if she had just had a seizure and recommended coming in to the ED. She mentions she stopped taking her duoloxetine 4 weeks ago for 2 weeks due to some bleeding issue, but recently restarted two weeks ago. She has a history of atrial thrombus and antiphospholipid syndrome, currently being seen by Dr. Laird (cardiology) in [place]. She currently has nno active signs of bleeding. Code: Full Insulin: No Medical Hx: multifocal epileptic seizures, depression, atrial thrombus Medications: Aptiom 1200 mg daily, Keppra 500 mg, Eliquis 5mg BD, Carvedilol 3.125mg BID, duoloxetine 25mg QD, plaquinol 200mg QD Allergies: Bactrim Surgical history: None Fhx: Noncontributory no FHX of seizures Living: At home with parents Work: no work/ no school at the moment Alcohol: Denies Cigarettes/tobacco: Denies Recreational drugs: Denies Patient admitted for: At the request of Dr. Montero patient will be admited for observation and EEG in the AM for evaluation of seizure activity. All 12 systems reviewed and were negative except otherwise stated in HPI. Exam Vital Signs Temp Pulse Resp BP Pulse Ox O2 Del Method 97.5 F 78 18 138/116 H 97 Room Air 09/26/25 23:06 09/26/25 23:06 09/26/25 23:06 09/26/25 23:06 09/26/25 23:06 09/26/25 23:06 Narrative Exam GENERAL APPEARANCE: AOx4. NAD, activity normal for age, well developed/ well nourished, no cyanosis, pallor, or diaphoresis. HEENT: Normocephalic atraumatic, no facial trauma, neck is supple. Lids/conjunctiva normal. Mucous membranes moist, nares normal, lips/teeth normal uvula midline without oral pharyngeal erythema, exudate or swelling TMs normal bilaterally. No lymphangitis/lymphedema. CARDIAC: Regular rate and rhythm, S1+S2 heard. No murmurs, rubs, or gallops noted RESPIRATORY: respiratory effort normal, speaks in full sentences, no tripod position, no accessory muscle use. Lungs clear to auscultation without rhonchi, wheezes, rales ABDOMINAL: NBS. Soft, ND/NT. No evidence of fluid wave. No pulsatile masses on exam, rebound tenderness, Norton sign or pain over Mcburney's point. MUSCLES/EXTREMITIES: No abnormal range of motion, no swelling. DERM: Warm, pink and dry. No rashes, dermatoses, petechiae or lesions. NEUROLOGICAL: Speech is clear and appropriate. Normal level of consciousness. Gait and coordination are normal. 5/5 strength in all extremities. PSYCH: Normal mood and affect. Judgement/competence is appropriate Results: Labs 09/27/25 05:30 09/26/25 20:04 Labs: Short CBC 09/26/25 Range/Units 20:04 WBC 7.8 (3.6-11.0) Thou/mm3 Hgb 13.8 (12.0-16.0) g/dL Hct 41.2 (36.0-46.0) % Plt Count 101 L (140-440) Thou/mm3 BMP 09/26/25 20:04 Sodium 140 Potassium 4.5 Chloride 105 Carbon Dioxide 27.9 BUN 7 L Creatinine 0.7 Glucose 90 Calcium 9.4 Cardiac Enzymes 09/26/25 09/26/25 Range/Units 20:04 21:19 Total Creatine Kinase 51 (34-171) U/L Troponin I < 0.002 (0.0-0.045) ng/mL Liver Function 09/26/25 Range/Units 20:04 Total Bilirubin 0.4 (0.3-1.2) mg/dL AST 30 (0-34) U/L ALT 52 H (10-49) U/L Alkaline Phosphatase 107 (46-116) U/L Albumin 4.8 (3.5-5.0) gm/dL Urine 09/26/25 Range/Units 20:14 Urine Color Lt-Yellow (Lt Yel-Yel) Urine Clarity Clear (Clear/Hazy) Urine pH 6.0 (5.0-7.0) Ur Specific [place] 1.016 (1.001-1.035) Urine Protein Negative (Neg - Trace) Urine Glucose (UA) Negative (Negative) Quality Measures Quality Measures VTE prophylaxis Medications Home Medications and Allergies Home Medications ?Medication ?Instructions ?Recorded ?Confirmed ?Type apixaban 5 mg tablet (Eliquis) 5 mg PO BID 09/27/25 09/27/25 History carvedilol 3.125 mg tablet 3.125 mg PO BID 09/27/25 09/27/25 History cholecalciferol (vitamin D3) 1,250 50,000 unit PO .[id number] 09/27/25 09/27/25 History mcg (50,000 unit) capsule duloxetine 20 mg capsule,delayed 20 mg PO QDAY 09/27/25 09/27/25 History release eslicarbazepine 600 mg tablet 1,200 mg PO QDAY 09/27/25 09/27/25 History (Aptiom) hydroxychloroquine 200 mg tablet 200 mg PO QDAY 09/27/25 09/27/25 History (Plaquenil) levetiracetam 500 mg tablet 500 mg PO QDAY 09/27/25 09/27/25 History Allergies Allergy/AdvReac Type Severity Reaction Status Date / Time sulfamethoxazole Allergy Mild Palpitation Verified 09/27/25 01:58 s trimethoprim Allergy Mild Palpitation Verified 09/27/25 01:58 s Visit Medications Acetaminophen (Acetaminophen 325 Mg Tablet) 650 mg PO Q6H PRN PRN Reason: Fever >100.4 or pain 1-3 Stop: 10/26/25 23:05 Apixaban (Apixaban 2.5 Mg Tablet) 5 mg PO BID [facility] Stop: 10/27/25 08:59 Carbamazepine (Carbamazepine 200 Mg Tablet) 300 mg PO BID [facility] Stop: 10/27/25 08:59 Carvedilol (Carvedilol 3.125 Mg Tablet) 3.125 mg PO BID [facility] Stop: 10/27/25 08:59 Docusate Sodium (Docusate Sod 100 Mg Capsule) 100 mg PO QDAY [facility]; Protocol Stop: 10/27/25 08:59 Duloxetine HCl (Duloxetine Hcl 20 Mg Capsule) 25 mg PO QDAY [facility] Stop: 10/27/25 08:59 Famotidine (Famotidine Inj 10 Mg/Ml Vial 2 Ml) 20 mg IVP Q12HR [facility] Stop: 10/27/25 08:59 Lactated Ringer's (Lactated Ringers) 1,000 mls @ 999 mls/hr IV .Q1H1M ONE Stop: 09/26/25 23:29 Last Admin: 09/26/25 23:17 Dose: 999 mls/hr Levetiracetam (Levetiracetam 250 Mg Tablet) 500 mg PO QDAY [facility] Stop: 10/27/25 08:59 Ondansetron HCl (Ondansetron Inj 2 Mg/Ml Inj 2 Ml) 4 mg IVP Q6H PRN; Protocol PRN Reason: NAUSEA OR VOMITING Stop: 10/26/25 23:05 Discontinued Medications Ketorolac Tromethamine (Ketorolac Inj 30 Mg/Ml Vial) 30 mg IVP X1 ONE Stop: 09/26/25 22:43 Last Admin: 09/26/25 23:18 Dose: Not Given Assessment & Plan Plan 24-year-old female with a past medical history of multifocal epileptic seizures, depression, atrial thrombus (eliquis and coreg) who is currently on Aptiom 1200 mg daily, Keppra 500 mg daily, who presented to ED after sister noted her to be somewhat out of it concerning for post-ictal state of seizures. At the request of Dr. Montero patient will be admited for observation and EEG in the AM for evaluation of seizure activity. #Seizure like episodes ddx seizurees, PNES, depressive negative symptoms Patient reports yesterday she had one tonic clonic seizure but 2 seizures overall. Today she had 3 seizures that felt like shortness of breath, dizziness, and weakness, Her sister saw her tonight and thought she looked post-ictal as if she had just had a seizure and recommended coming in to the ED. Patient unable to explain what episode of seizure was like and her seizures were unwitnessed. Do not have aptiom at pharmacy, spoke with tele-pharmacist confirmed carbamazepine dose equivalency. Imaging and labs unremarkable. Follow up EEG in Am, can consider MRI per seizure protocol. Plan: -Carbamazepine 300mg PO BID -Keppra 500mg PO QD -Ativan inj 2mg IVP PRN for seizure activity -Dr. Montero consulted -EEG in AM FUP:____ -Seizure precautions -Neurochecks q4h #Hx of Depression Duoloxetine impacts her bleeding, but she has no active signs of bleeding and has been taking it the last two weeks. Plan: -Restarting duoloxetine 25mg QD - hold for bleeding #Thrombocytopenia #Hx of Antiphospholipid syndrome #Hx of atrial thrombus Platelets 101, APTT 40.2 other coags wnl, no active bleeding. Plan: -Continue eliquis 5mg BID -Carvedilol 3.125mg PO BID Health Maintenance: Code status: Full DVT prophylaxis: Eliquis 5mg BID GI prophylaxis: Famotidine Diet: Full Mejias: None Lines: PIV Supplemental O2: None Disposition: Admitted to tele floor for observation and EEG in AM, pre request of Dr. Montero Patient seen and reviewed with attending Dr. Larson. Note written by Leo Nuñez MD PGY-1 Attending Provider Attestation/Addendum After examination of the patient and review of the clinical data I feel that this patient needs admission to the hospital for further treatment/evaluation. Plan of care discussed with patient and is in agreement. I Catrachita Larson MD, attest that I was physically present for mendez portions of evaluation, and examined patient, labs and imagings and plan of care were discussed with IM residents team, and I agree with the findings and plans documented above.
[2025-09-27] VITALS (13 sets, daily range): BP systolic 100–143; BP diastolic 59–96; PULSE 63–102; RESP 17–20; TEMP 36.1–36.7; O2SAT 95–99; BMI 39.2
--- NOTE | 2025-09-27 04:09 | RESP.EEG ---
EEG has been completed and is ready for MD interpretation.
[2025-09-27 06:18] LABS: Basophils # (Auto) 0.0 Thou/mm3 (0.0-0.2); Basophils % (Auto) 0 % (0-2.5); Eosinophils # (Auto) 0.1 Thou/mm3 (0.0-0.5); Eosinophils % (Auto) 1 % (0-10); Hematocrit 38.5 % (36.0-46.0); Hemoglobin 13.0 g/dL (12.0-16.0); Immature Granulocytes Auto 0.02 Thou/mm3 (0.00-0.00); Lymphocytes # (Auto) 2.3 Thou/mm3 (1.0-4.8); Lymphocytes % (Auto) 27 % (10-50); Mean Corpuscular HGB Conc 33.8 g/dl (31.0-37.0); Mean Corpuscular Hemoglobin 25.9 pg (25.0-35.0); Mean Corpuscular Volume 77 fL (80-100); Monocytes # (Auto) 0.8 Thou/mm3 (0.0-0.8); Monocytes % (Auto) 10 % (0-12); Neutrophils # (Auto) 5.2 Thou/mm3 (1.8-7.7); Neutrophils % (Auto) 61 % (37-80); Nucleated Red Blood Cell # 0.00 Thou/mm3 (0.00-0.00); Nucleated Red Blood Cell % 0 /100 WBC (0); Platelet Count 95 Thou/mm3 (140-440); RDW Standard Deviation 35.0 fL (36.4-46.3); Red Blood Count 5.01 Miln/mm3 (4.00-5.20); White Blood Count 8.5 Thou/mm3 (3.6-11.0)
--- NOTE | 2025-09-27 08:24 | PC.NURSE ---
call to pharmacy, I have no tegretol for this pt
[2025-09-27] MEDS: DOCUSATE SOD 100 MG CAPSULE PO (08:25)
[2025-09-27] MEDS: DULoxetine HCL 20 MG CAPSULE 25 MG PO (08:25)
[2025-09-27] MEDS: APIXABAN 2.5 MG TABLET 5 MG PO ×2 (08:25→20:40)
[2025-09-27] MEDS: HYDROXYCHLOROQUINE 200 MG TABLET PO (08:26)
[2025-09-27] MEDS: FAMOTIDINE INJ 10 MG/ML VIAL 2 ML 20 MG IVP ×2 (08:26→20:40)
--- NOTE | 2025-09-27 08:49 | PC.SS ---
This is 24-year-old, female who presented to the ED for seizure. Patient appeared alert and oriented to self, place and situation. Patient was able to verify her address and phone number. Patient resides at home with parents. Patient is independent with all ADLs, no DME. Patient assigned her parents: Jefry and Cheryl (cellphone numbers verified) as her medical decision maker. Patient's PCP is Mireya Yates When medically clear, patient will return home; family to provide transportation. Discharge plan: return home, family to provide transportation. Next of kin: Jefry or Cheryl-parents.
--- NOTE | 2025-09-27 10:31 | XR_ITS ---
Examination: CT chest, without intravenous contrast. Sagittal and coronal 2-D reconstructions. Exam date and time: September 27, 2025, 1712 hours INDICATIONS: Chest x-ray September 26, 2025 29 mm pulmonary mass right middle lobe CTDI:vol (mGy) 15.1 DLP: (mGycm) 482 Technique: Multiple 3.0 mm axial sections of the chest to been obtained. Bone and lung density settings are obtained. Sagittal and coronal 2-D reconstructions have been obtained. Low dose protocols were performed. One or more of the following dose reduction techniques were used; automated exposure control, adjustment of the mA and/or KV according to patient size, use of iterative reconstruction technique. Findings: No thoracic aortic aneurysm dilatation or dissection No paratracheal tracheobronchial or bronchopulmonary adenopathy Calcified mass in the right atrium, coronal image 78, axial image 89 measuring 40 x 26 mm There also is minimal calcification, 9 mm at the posterior margin of the right atrium image 102 No pneumonia or pulmonary edema, pleural disease or pulmonary mass lesion No visualized liver or splenic lesion No gallstones No pancreatic or adrenal mass No hydronephrosis IMPRESSION: No pulmonary mass lesion confirmed Calcified mass 40 x 26 mm in the right atrium Also 9 mm calcification at the posterior margin of the right atrium Recommend cardiac ultrasound examination follow-up
--- NOTE | 2025-09-27 10:36 | ESPR_ITS ---
Documentation for date of: 09/27/25 Subjective Subjective Interval history: Patient was seen this morning resting comfortably. She reports multiple seizure- like episodes over the last several days. She states the episode on Monday was more severe than any she has had in months, beginning after a hot shower and associated with shortness of breath, dizziness, weakness, fuzzy vision, and partial memory loss. She reports additional similar but less intense episodes on Monday and . She confirms she remembers only fragments of each episode. She denies convulsions for these recent events but notes a history of convulsions with tongue-biting last year. No seizures or episodes since arrival. States dizziness and shortness of breath have resolved today. Denies chest pain, palpitations, fever, dysuria, recent infections, or unusual bleeding. Reports taking seizure medications consistently at home without missed doses; sometimes uses CBD gummies (19 mg) when she feels a seizure coming, as she believes it helps. No alcohol or drug use. At 15:00 patient had a seizure that was witnessed by nurse, Ativan was given and seizure resolved. Went to go see the patient ask how she felt stated she was feeling we will continue to monitor patient. Exam Vital Signs Temp Pulse Resp BP Pulse Ox O2 Del Method 97.4 F 66 18 132/90 H 99 Room Air 09/27/25 07:46 09/27/25 09:43 09/27/25 07:46 09/27/25 08:25 09/27/25 07:46 09/27/25 07:46 Narrative Exam General: Awake, alert, oriented ?4, speaking clearly, no acute distress. HEENT: NC/AT. PERRLA. EOMI. No tongue trauma. Oral mucosa moist. No scleral icterus. Neck: Supple, no JVD, no meningismus. Cardiac: Regular rate and rhythm. Normal S1/S2. No murmurs, rubs, or gallops. Respiratory: Non-labored breathing on room air. Lungs clear to auscultation bilaterally. No wheezes/rales/rhonchi. Abdomen: Soft, non-tender, non-distended. Normal bowel sounds. Extremities: No edema. Warm and well-perfused. No tenderness. Neuro: -Alert and oriented ?4. -Cranial nerves grossly intact. -5/5 strength in UE and LE bilaterally. -Normal coordination. -No tremor, no focal deficits. -Gait not assessed but patient moves all extremities spontaneously. Skin: Warm, dry, intact. No bruising or rashes. Psych: Appropriate mood and affect. Good insight and judgment. Objective Labs 09/28/25 04:44 09/28/25 04:44 Labs: Laboratory Results - last 24 hr 09/26/25 09/26/25 09/26/25 20:04 20:14 21:19 WBC 7.8 RBC 5.35 H Hgb 13.8 Hct 41.2 MCV 77 L MCH 25.8 MCHC 33.5 RDW Std Deviation 34.9 L Plt Count 101 L Neut % (Auto) 68 Lymph % (Auto) 22 [place] % (Auto) 8 Eos % (Auto) 2 Baso % (Auto) 0 Neut # (Auto) 5.3 Lymph # (Auto) 1.7 [place] # (Auto) 0.6 Eos # (Auto) 0.1 Baso # (Auto) 0.0 Immature Gran # (Auto) 0.02 H Absolute Nucleated RBC 0.00 Immature Gran % 0 Nucleated RBC % 0 PT 11.0 INR 1.0 APTT 40.2 H Sodium 140 Potassium 4.5 Chloride 105 Carbon Dioxide 27.9 Anion Gap 7 BUN 7 L Creatinine 0.7 Estim Creat Clear Calc 100.5 eGFR > 60 BUN/Creatinine Ratio 10 L Glucose 90 Calculated Osmolality 277 Lactic Acid 1.6 Calcium 9.4 Corrected Calcium 9.4 Phosphorus Magnesium 1.9 Total Bilirubin 0.4 AST 30 ALT 52 H Alkaline Phosphatase 107 Total Creatine Kinase 51 Troponin I < 0.002 Total Protein 7.1 Albumin 4.8 Globulin 2.3 Albumin/Globulin Ratio 2.1 Lipase 38 TSH 1.20 Ur Collection Type Voided Urine Color Lt-Yellow Urine Clarity Clear Urine pH 6.0 Ur Specific [place] 1.016 Urine Protein Negative Urine Glucose (UA) Negative Urine Ketones Negative Urine Blood Negative Urine Nitrite Negative Urine Bilirubin Negative Urine Urobilinogen (Auto) Negative Ur Leukocyte Esterase Negative Urine RBC 2 Urine WBC 1 Ur Squamous Epith Cells 6 H Amorphous Crystals Present A Urine Bacteria Rare Ur Culture Indicated? Not Indicated Urine HCG, Qual Negative Urine Opiates Screen Negative Urine Fentanyl Screen Negative Ur Barbiturates Screen Negative U Amphetamin/Meth Scrn Negative U Benzodiazepines Scrn Negative U Cocaine Metab Screen Negative U Marijuana (THC) Screen Negative Ethyl Alcohol < 3.0 09/27/25 05:30 WBC 8.5 RBC 5.01 Hgb 13.0 Hct 38.5 MCV 77 L MCH 25.9 MCHC 33.8 RDW Std Deviation 35.0 L Plt Count 95 L Neut % (Auto) 61 Lymph % (Auto) 27 [place] % (Auto) 10 Eos % (Auto) 1 Baso % (Auto) 0 Neut # (Auto) 5.2 Lymph # (Auto) 2.3 [place] # (Auto) 0.8 Eos # (Auto) 0.1 Baso # (Auto) 0.0 Immature Gran # (Auto) 0.02 H Absolute Nucleated RBC 0.00 Immature Gran % 0 Nucleated RBC % 0 PT INR APTT Sodium 142 Potassium 4.8 Chloride 106 Carbon Dioxide 27.1 Anion Gap 9 BUN 6 L Creatinine 0.7 Estim Creat Clear Calc 102.2 eGFR > 60 BUN/Creatinine Ratio 9 L Glucose 86 Calculated Osmolality 279 Lactic Acid Calcium 9.4 Corrected Calcium 9.4 Phosphorus 3.8 Magnesium 1.8 Total Bilirubin 0.4 AST 25 ALT 38 Alkaline Phosphatase 92 Total Creatine Kinase Troponin I Total Protein 6.2 Albumin 4.3 D Globulin 1.9 L Albumin/Globulin Ratio 2.3 H Lipase TSH 1.96 Ur Collection Type Urine Color Urine Clarity Urine pH Ur Specific [place] Urine Protein Urine Glucose (UA) Urine Ketones Urine Blood Urine Nitrite Urine Bilirubin Urine Urobilinogen (Auto) Ur Leukocyte Esterase Urine RBC Urine WBC Ur Squamous Epith Cells Amorphous Crystals Urine Bacteria Ur Culture Indicated? Urine HCG, Qual Urine Opiates Screen Urine Fentanyl Screen Ur Barbiturates Screen U Amphetamin/Meth Scrn U Benzodiazepines Scrn U Cocaine Metab Screen U Marijuana (THC) Screen Ethyl Alcohol Quality Measures Quality Measures VTE prophylaxis Assessment & Plan Assessment Current Active Medications: Generic Name Dose Route Start Last Admin Trade Name Freq PRN Reason Stop Dose Admin Acetaminophen 650 mg 09/26/25 23:06 Acetaminophen 325 Mg Tablet PO 10/26/25 23:05 Q6H PRN Fever >100.4 or pain 1-3 Apixaban 5 mg 09/27/25 09:00 09/27/25 08:25 Apixaban 2.5 Mg Tablet PO 10/27/25 08:59 5 mg BID YOAV Administration Carbamazepine 300 mg 09/27/25 09:00 Carbamazepine 100 Mg Chew PO 10/27/25 08:59 BID YOAV Carvedilol 3.125 mg 09/27/25 09:00 09/27/25 08:25 Carvedilol 3.125 Mg Tablet PO 10/27/25 08:59 3.125 mg BID YOAV Administration Docusate Sodium 100 mg 09/27/25 09:00 09/27/25 08:25 Docusate Sod 100 Mg Capsule PO 10/27/25 08:59 100 mg QDAY YOAV Administration Protocol Duloxetine HCl 25 mg 09/27/25 09:00 09/27/25 08:25 Duloxetine Hcl 20 Mg Capsule PO 10/27/25 08:59 25 mg QDAY YOAV Administration Famotidine 20 mg 09/27/25 09:00 09/27/25 08:26 Famotidine Inj 10 Mg/Ml Vial 2 Ml IVP 10/27/25 08:59 20 mg Q12HR YOAV Administration Hydroxychloroquine Sulfate 200 mg 09/27/25 09:00 09/27/25 08:26 Hydroxychloroquine 200 Mg Tablet PO 10/04/25 08:59 200 mg QDAY YOAV Administration Levetiracetam 500 mg 09/27/25 09:00 09/27/25 08:26 Levetiracetam 250 Mg Tablet PO 10/27/25 08:59 500 mg QDAY YOAV Administration Lorazepam 2 mg 09/27/25 01:21 Lorazepam 2 Mg/Ml Vial IVP 10/02/25 01:20 Q8HR PRN Seizure Activity Ondansetron HCl 4 mg 09/26/25 23:06 Ondansetron Inj 2 Mg/Ml Inj 2 Ml IVP 10/26/25 23:05 Q6H PRN NAUSEA OR VOMITING Protocol Plan 24-year-old female with multifocal epileptic seizures, antiphospholipid syndrome on hydroxychloroquine + Eliquis, history of atrial thrombus, and depression, admitted for breakthrough seizure-like episodes with abnormal EEG showing bilateral anterior temporal epileptiform discharges. # Seizure disorder ? breakthrough episodes Several breakthrough focal-impaired awareness?type seizures over past several days. EEG abnormal with temporal spikes. Likely true epileptic activity. No metabolic triggers identified. Aptiom unavailable; carbamazepine used as equivalent substitution. Plan: * Continue Keppra 500 mg daily * Continue Carbamazepine 300 mg BID * Ativan 2 mg IVP PRN for seizures * Seizure precautions * Neurology (Dr. Montero) following; pending further recs # Depression Restarted duloxetine 25 mg daily two weeks ago. No active signs of bleeding. Plan: * Continue duloxetine 25 mg daily * Monitor for bleeding (given Eliquis) # Thrombocytopenia Chronic mild thrombocytopenia (101 -> 95). No bleeding. Plan: * Trend CBC * If <50 or bleeding develops, will re-evaluate Eliquis # Antiphospholipid syndrome (APLA) On hydroxychloroquine (Plaquenil) as part of her APLA management. Also on Eliquis due to prior atrial thrombus. Plan: * Continue hydroxychloroquine 200 mg daily * Continue Eliquis 5 mg BID * Continue Carvedilol 3.125 mg BID # History of atrial thrombus Stable, no current symptoms. Plan: * Continue Eliquis + Carvedilol as above. # Pulmonary mass Incidental 29 mm RML mass Plan: * Ordered CT chest w/ contrast * PCP follow-up referral Health Maintenance: Diet: Regular DVT prophylaxis: Eliquis (already therapeutic) GI prophylaxis: Famotidine Code: Full Disposition: Continue observation on tele. Await Neurology recommendations before considering discharge. ----- Plan discussed with attending physician Dr. Abdoulaye Irizarry MD PGY-1 Internal Medicine Attending Provider Attestation/Addendum I have examined the patient, reviewed labs and imaging findings, discussed the case with the resident(s), and reviewed entered orders. I agree with the plan of care as outlined in this note, with these additional summaries/recommendations: Patient seen at bedside. Patient was admitted overnight for breakthrough seizure. Patient has history of seizure disorder starting in childhood per patient has a history of difficult to control seizures. She feels this breakthrough seizure was secondary to taking a hot shower. She endorses medication compliance and denies any significant stressors or changes in medications. She takes Aptiom and Keppra at home for antiepileptic regimen. EEG obtained overnight revealed localized spike and wave activity in bilateral anterior temporal lobes consistent with seizures. In-house neurology consulted, recommendations appreciated. As needed Ativan for breakthrough seizure and seizure precautions. Patient reports she currently does not work or operate a motor vehicle. Chest x-ray on admission showed 29 mm pulmonary mass which projects into the right middle lobe and we will obtain CT scan of chest. Patient has history of antiphospholipid syndrome on hydroxychloroquine and in Eliquis for history of atrial thrombus. Patient updated on the plan and agreement. All questions answered to satisfaction. Please see residents note for additional details and management. Dr. Abdoulaye MD
[2025-09-27 13:23] LABS: Cocci Serology, IgM Negative (Negative)
[2025-09-27] MEDS: LORazepam 2 MG/ML VIAL IVP (15:11)
--- NOTE | 2025-09-27 23:52 | PD.VCONSULT1 ---
Telemedicine visit statement This visit was conducted with the use of interactive audio and video telecommunications system that permits real time communication between the patient and the provider. Patient's verbal consent for virtual visit was obtained on 09/27/25 at 2352. History of Present Illness History of Present Illness History of present illness: Ms. Edward is a 24-year-old female with history of seizures on antiepileptic drugs including Keppra and Aptiom, antiphospholipid antibody syndrome, depression, arterial thrombus on Eliquis and Coreg presented to ED after sister noted her to be somewhat out of it concerning for post-ictal state of seizures. Neurology was consulted to evaluate further. I requested admission for observation and EEG in the AM for evaluation of seizure activity. ER Course Summary Vitals: BP 142/97 HR 83 RR 18 T 98.2F O2 sat 97% Labs: Plt 101, APTT 40.2 UA unremarkable other than few sq. epithelial cells Imaging: EKG sinus rhythm with sinus arrhythmia QTc [address] Negative for acute hemorrhage, mass effect or midline shift CXR Normal heart size No lobar pneumonia or pulmonary edema 29 mm pulmonary mass which projects in the right middle lobeThe [place] structures are intact Treatment: LR 1 L Patient reports yesterday she had one tonic clonic seizure but 2 seizures overall. Today she had 3 seizures that felt like shortness of breath, dizziness, and weakness, Her sister saw her tonight and thought she looked post-ictal as if she had just had a seizure and recommended coming in to the ER. She mentions she stopped taking her duoloxetine 4 weeks ago for 2 weeks due to some bleeding issue, but recently restarted two weeks ago. Past Medical History Past Medical History NEUROLOGIC: Positive Seizures; Negative Neurological Disorders CARDIAC: Negative Cardiac Disorders or Congestive Heart Failure RESPIRATORY: Negative Chronic Obstructive Pulmonary Disease (COPD) GASTROINTESTINAL: Negative Gastrointestinal Disorders GENITOURINARY: Negative Genitourinary Disorders or Renal Disease MUSCULOSKELETAL: Negative Musculoskeletal Disorders ENDOCRINE: Negative Endocrine Disorders, Diabetes Mellitus Type 1 or Diabetes Mellitus Type 2 HEMATOLOGIC: Negative Blood Disorders PSYCHO/SOCIAL: Positive Depression and Anxiety OTHER HISTORY: Positive Autoimmune Disease (Antiphospholipid syndrome); Negative Blood Transfusions, Blood Transfusion Reaction or Anesthesia Reactions Surgical History SURGICAL: Negative Cardiac Surgery, Ear Surgery, Eye Surgery, Nose Surgery, Oral Surgery, Tonsillectomy or Abdominal Surgery Social History SMOKING STATUS: Never smoker TeleMedicine ROS Pertinent Review of Systems Systems Reviewed: All systems reviewed, normal except as documented Meds Home Medications and Allergies Home Medications ?Medication ?Instructions ?Recorded ?Confirmed ?Type apixaban 5 mg tablet (Eliquis) 5 mg PO BID 09/27/25 09/27/25 History carvedilol 3.125 mg tablet 3.125 mg PO BID 09/27/25 09/27/25 History cholecalciferol (vitamin D3) 1,250 50,000 unit PO .[id number] 09/27/25 09/27/25 History mcg (50,000 unit) capsule duloxetine 20 mg capsule,delayed 20 mg PO QDAY 09/27/25 09/27/25 History release eslicarbazepine 600 mg tablet 1,200 mg PO QDAY 09/27/25 09/27/25 History (Aptiom) hydroxychloroquine 200 mg tablet 200 mg PO QDAY 09/27/25 09/27/25 History (Plaquenil) levetiracetam 500 mg tablet 500 mg PO QDAY 09/27/25 09/27/25 History Allergies Allergy/AdvReac Type Severity Reaction Status Date / Time sulfamethoxazole Allergy Mild Palpitation Verified 09/27/25 01:58 s trimethoprim Allergy Mild Palpitation Verified 09/27/25 01:58 s Virtual exam Vital Signs Temp Pulse Resp BP Pulse Ox O2 Del Method 98.1 F 90 18 134/92 H 95 Room Air 09/27/25 20:00 09/27/25 22:00 09/27/25 20:00 09/27/25 20:00 09/27/25 20:00 09/27/25 20:00 Results Labs 09/27/25 05:30 09/26/25 20:04 Labs: Short CBC 09/27/25 Range/Units 05:30 WBC 8.5 (3.6-11.0) Thou/mm3 Hgb 13.0 (12.0-16.0) g/dL Hct 38.5 (36.0-46.0) % Plt Count 95 L (140-440) Thou/mm3 BMP 09/27/25 05:30 Sodium Cancelled Potassium Cancelled Chloride Cancelled Carbon Dioxide Cancelled BUN Cancelled Creatinine Cancelled Glucose Cancelled Calcium Cancelled Liver Function 09/27/25 Range/Units 05:30 Total Bilirubin Cancelled AST Cancelled ALT Cancelled Alkaline Phosphatase Cancelled Albumin Cancelled Assessment & Plan Problem List (1) Breakthrough seizure: Status: Acute Assessment and plan: As the EEG shows abnormal study with epileptiform discharges, will increase the dose of the Keppra to 500 mg twice a day along with the carbamazepine 300 mg twice a day as Aptiom is nonformulary. Continue to follow seizure precautions and avoid seizure triggers. Advised her about the importance of compliance to prevent recurrence of breakthrough seizures.
[2025-09-28] VITALS (10 sets, daily range): BP systolic 102–128; BP diastolic 69–86; PULSE 68–95; RESP 14–18; TEMP 36.1–36.6; O2SAT 97–99
--- NOTE | 2025-09-28 00:07 | PC.NURSE ---
MD Montero called and got update for the pt. will increase Keppra dose to BID to start in AM.
[2025-09-28 05:39] LABS: Basophils # (Auto) 0.0 Thou/mm3 (0.0-0.2); Basophils % (Auto) 0 % (0-2.5); Eosinophils # (Auto) 0.1 Thou/mm3 (0.0-0.5); Eosinophils % (Auto) 1 % (0-10); Hematocrit 40.4 % (36.0-46.0); Hemoglobin 13.5 g/dL (12.0-16.0); Immature Granulocytes Auto 0.02 Thou/mm3 (0.00-0.00); Lymphocytes # (Auto) 2.2 Thou/mm3 (1.0-4.8); Lymphocytes % (Auto) 34 % (10-50); Mean Corpuscular HGB Conc 33.4 g/dl (31.0-37.0); Mean Corpuscular Hemoglobin 25.9 pg (25.0-35.0); Mean Corpuscular Volume 77 fL (80-100); Monocytes # (Auto) 0.7 Thou/mm3 (0.0-0.8); Monocytes % (Auto) 11 % (0-12); Neutrophils # (Auto) 3.5 Thou/mm3 (1.8-7.7); Neutrophils % (Auto) 53 % (37-80); Nucleated Red Blood Cell # 0.00 Thou/mm3 (0.00-0.00); Nucleated Red Blood Cell % 0 /100 WBC (0); Platelet Count 90 Thou/mm3 (140-440); RDW Standard Deviation 36.2 fL (36.4-46.3); Red Blood Count 5.22 Miln/mm3 (4.00-5.20); White Blood Count 6.5 Thou/mm3 (3.6-11.0)
[2025-09-28 06:00] LABS: Alanine Aminotransferase 35 U/L (10-49); Albumin, Serum 4.4 gm/dL (3.5-5.0); Albumin/Globulin Ratio 1.8 (1.2-2.2); Alkaline Phosphatase 96 U/L (46-116); Anion Gap 11 (7-16); Aspartate Amino Transferase 24 U/L (0-34); BUN/Creatinine Ratio 10 Ratio (12-20); Bilirubin,Total 0.5 mg/dL (0.3-1.2); Blood Urea Nitrogen 8 mg/dL (9-23); Calcium 9.7 mg/dL (8.3-10.6); Calcium (Corrected) 9.7 mg/dL (8.5-10.1); Carbon Dioxide 26.7 mMol/L (20.0-31.0); Chloride 104 mMol/L (98-107); Creatinine (Component) 0.8 mg/dL (0.6-1.3); Estimated Creatinine Clearance 89.4 mL/min (>60); Globulin 2.4 gm/dL (2.3-3.5); Glucose 78 mg/dL (74-106); Magnesium 1.8 mg/dL (1.6-2.6); Osmolality,Calculated 280 (275-295); Phosphorous 4.8 mg/dL (2.4-5.1); Potassium 3.9 mMol/L (3.4-5.1); Sodium 142 mMol/L (136-145); Total Protein 6.8 gm/dL (5.7-8.2); eGFR > 60 See Note
[2025-09-28] MEDS: APIXABAN 2.5 MG TABLET 5 MG PO ×2 (08:00→20:37)
[2025-09-28] MEDS: DULoxetine HCL 20 MG CAPSULE 25 MG PO (08:06)
[2025-09-28] MEDS: DOCUSATE SOD 100 MG CAPSULE PO (08:08)
[2025-09-28] MEDS: FAMOTIDINE INJ 10 MG/ML VIAL 2 ML 20 MG IVP ×2 (08:11→20:37)
[2025-09-28] MEDS: HYDROXYCHLOROQUINE 200 MG TABLET PO (08:11)
--- NOTE | 2025-09-28 10:01 | ECHO_ITS ---
Patient Info Name: Lakesha Edward Age: 24 years : 2000 Gender: Female Ht: 137 cm Wt: 73 kg BSA: 1.72 m2 BP: 146 / 99 mmHg HR: 78 bpm Exam Date: 09/29/2025 10:11 AM Admit Date: 09/29/2025 Site: [facility] Room Number: [id number] Patient Status: I Exam Type: CA echo doppler complete Technical Intern: Nisreen Pratt Ordering Physician: Himanshu Aponte Study Info Indications calcification in heart - Primary Location: [id number] Left Ventricular Outflow Tract Name Value Normal LVOT 2D LVOT Diameter 1.8 cm LVOT Doppler LVOT Peak Velocity 86 cm/s LVOT Mean Gradient 1 mmHg LVOT VTI 14 cm LVOT VTI/AV VTI Ratio 0.7 LVOT Stroke Volume 35 ml Pulmonic Valve Name Value Normal PV Doppler PV Peak Velocity 87 cm/s Mitral Valve Name Value Normal MV Doppler MV Decel Stoddard 513 cm/s2 MV PHT 31 ms MV Area (PHT) 7.2 cm2 4.0-5.0 MV Diastolic Function MV E Peak Velocity 54 cm/s MV A Peak Velocity 64 cm/s MV E/A 0.8 MV Annular TDI MV Septal e' Velocity 6.4 cm/s MV E/e' (Septal) 8.4 MV Lateral e' Velocity 8.7 cm/s MV E/e' (Lateral) 6.2 MV e' Average 7.56 cm/s MV E/e' (Average) 7.3 Tricuspid Valve Name Value Normal TV Regurgitation Doppler TR Peak Velocity 244 cm/s Estimated PAP/RSVP RA Pressure 8 mmHg <=5 PA Systolic Pressure 32 mmHg <36 RV Systolic Pressure 32 mmHg <36 Aortic Valve Name Value Normal AV 2D/MM AV Cusp Sep (MM) 1.3 cm AV Doppler AV Peak Velocity 106 cm/s AV Mean Gradient 2 mmHg AV VTI 20 cm AV Area (Cont Eq VTI) 1.8 cm2 >=3.0 AV Area (Cont Eq Alberto) 2.1 cm2 AV DI (Alberto) 0.81 AV Regurgitation 2D LVOT Area 2.5 cm2 Ventricles Name Value Normal LV Dimensions 2D/MM IVS Diastolic Thickness (2D) 0.8 cm 0.6-0.9 LVID Diastole (2D) 4.1 cm 3.8-5.2 LVIW Diastolic Thickness (2D) 0.8 cm 0.6-0.9 LVID Systole (2D) 2.7 cm 2.2-3.5 LVOT Diameter 1.8 cm LV Mass (2D Cubed) 97.34 g 67.00-162.00 LV Mass Index (2D Cubed) 57 g/m2 43-95 Relative Wall Thickness (2D) 0.39 <=0.42 IVS/LVIW Diastolic Thickness (2D) 1.00 0.00-1.50 LV Fractional Shortening/Ejection Fraction 2D/MM LV Fractional Shortening (2D) 34 % 27-45 LV EF (2D Teichholz) 64 % Left Ventricle Left ventricular chamber dimension is normal. Left ventricular systolic function is normal with visually estimated ejection fraction of 50-55%. There is normal geometry noted in the left ventricle. Left ventricular segmental wall motion is normal. There is grade I diastolic dysfunction in the left ventricle. Right Ventricle Right ventricular chamber dimension is normal. Right ventricular systolic function is normal. Left Atrium Left atrial chamber dimension is normal. Right Atrium Right atrial chamber dimension is normal. Calcified echodensity with mobile extension noted on the tricuspid valve and also possibly attached to the right atrium valve measuring 3 x 3 x 2 cm. Differential includes mass with possible tumor versus old calcified vegetations. Mild tricuspid regurgitation noted. Recommend SEGUNDO for further evaluation. Rest of the valves appear normal. Aortic Valve The aortic valve is trileaflet. There is no aortic valve sclerosis. There is no aortic valve stenosis with a peak velocity of 106 cm/s, mean gradient of 2 mmHg, and aortic valve area of 1.8 cm2. There is no aortic valve regurgitation. Pulmonic Valve The pulmonic valve is normal. There is no pulmonic valve stenosis. There is mild pulmonic regurgitation. Mitral Valve The mitral valve has thickened leaflets. There is no mitral valve stenosis. There is trace mitral valve regurgitation. Tricuspid Valve The tricuspid valve leaflets are normal. There is no tricuspid valve stenosis. There is mild tricuspid valve regurgitation. Mild pulmonary hypertension, estimated pulmonary arterial systolic pressure is 32 mmHg and systemic blood pressure of 146 mmHg in systole. Pericardium/Pleural The pericardium appears normal. There is no pericardial effusion. No pleural effusion visualized. Inferior Vena Cava Not well visualized inferior vena cava with >50% collapse upon inspiration consistent with normal right atrial pressure, 8 mmHg. Aorta The aortic measurements are indexed to age and body surface area. The aortic root at the sinus of Valsalva is not well visualized. The prox ascending aorta is not well visualized. Summary 1. Calcified echodensity with mobile extension noted on the tricuspid valve and also possibly attached to the right atrium valve measuring 3 x 3 x 2 cm. Differential includes mass with possible tumor versus old calcified vegetations. Mild tricuspid regurgitation noted. Recommend SEGUNDO for further evaluation. Rest of the valves appear normal. 2. Left ventricle size is normal and systolic function is normal. Estimated ejection fraction is 60-65%. There is grade I diastolic dysfunction. 3. Right ventricle chamber size is normal and systolic function is normal. Estimated RVSP is 32 mmHg. Mild HTN. 4. There is trace mitral valve regurgitation and mild pulmonary valve regurgitation. 5. Not well visualized IVC with estimated RA pressure 8 mmHg. Report Signatures Finalized by Ezra Carlos on 09/29/2025 05:56 PM
--- NOTE | 2025-09-28 11:38 | ESPR_ITS ---
Documentation for date of: 09/28/25 Subjective Subjective Interval history: No overnight events. Patient was examined at bedside; they appear A&Ox3 and in NAD. Vitals/labs today significant for platelet count 95->90. Physical exam non- contributory. 09/27 EEG has resulted and showed abnormal localized spike and wave activity of the bilateral anterior temporal and temporal areas consistent with seizures. 09/27 showed a calcified mass in the right atrium and 9 mm calcification at the posterior margin of the right atrium (possibly a thrombus). Due to the above cardiac finding, an 09/28 echo has been ordered with plans to consult Cardiology tomorrow. Exam Vital Signs Temp Pulse Resp BP Pulse Ox O2 Del Method 97.6 F 79 18 115/69 97 Room Air 09/28/25 07:47 09/28/25 08:11 09/28/25 07:47 09/28/25 08:11 09/28/25 07:47 09/28/25 07:47 Narrative Exam General: Awake, alert, oriented ?4, speaking clearly, no acute distress. HEENT: NC/AT. PERRLA. EOMI. No tongue trauma. Oral mucosa moist. No scleral icterus. Neck: Supple, no JVD, no meningismus. Cardiac: Regular rate and rhythm. Normal S1/S2. No murmurs, rubs, or gallops. Respiratory: Non-labored breathing on room air. Lungs clear to auscultation bilaterally. No wheezes/rales/rhonchi. Abdomen: Soft, non-tender, non-distended. Normal bowel sounds. Extremities: No edema. Warm and well-perfused. No tenderness. Neuro: -Alert and oriented ?4. -Cranial nerves grossly intact. -5/5 strength in UE and LE bilaterally. -Normal coordination. -No tremor, no focal deficits. -Gait not assessed but patient moves all extremities spontaneously. Skin: Warm, dry, intact. No bruising or rashes. Psych: Appropriate mood and affect. Good insight and judgment. Objective Labs 09/29/25 04:28 09/29/25 04:28 Labs: Laboratory Results - last 24 hr 09/27/25 09/27/25 09/28/25 05:30 10:40 04:44 WBC 6.5 RBC 5.22 H Hgb 13.5 Hct 40.4 MCV 77 L MCH 25.9 MCHC 33.4 RDW Std Deviation 36.2 L Plt Count 90 L Neut % (Auto) 53 Lymph % (Auto) 34 [place] % (Auto) 11 Eos % (Auto) 1 Baso % (Auto) 0 Neut # (Auto) 3.5 Lymph # (Auto) 2.2 [place] # (Auto) 0.7 Eos # (Auto) 0.1 Baso # (Auto) 0.0 Immature Gran # (Auto) 0.02 H Absolute Nucleated RBC 0.00 Immature Gran % 0 Nucleated RBC % 0 Sodium Cancelled 142 Potassium Cancelled 3.9 D Chloride Cancelled 104 Carbon Dioxide Cancelled 26.7 Anion Gap Cancelled 11 BUN Cancelled 8 L Creatinine Cancelled 0.8 Estim Creat Clear Calc Cancelled 89.4 eGFR Cancelled > 60 BUN/Creatinine Ratio Cancelled 10 L Glucose Cancelled 78 Calculated Osmolality Cancelled 280 Calcium Cancelled 9.7 Corrected Calcium Cancelled 9.7 Phosphorus Cancelled 4.8 Magnesium Cancelled 1.8 Total Bilirubin Cancelled 0.5 AST Cancelled 24 ALT Cancelled 35 Alkaline Phosphatase Cancelled 96 Total Protein Cancelled 6.8 Albumin Cancelled 4.4 Globulin Cancelled 2.4 Albumin/Globulin Ratio Cancelled 1.8 TSH Cancelled Coccidioides IgM Ab Negative Quality Measures Quality Measures VTE prophylaxis Assessment & Plan Assessment Current Active Medications: Generic Name Dose Route Start Last Admin Trade Name Freq PRN Reason Stop Dose Admin Acetaminophen 650 mg 09/26/25 23:06 Acetaminophen 325 Mg Tablet PO 10/26/25 23:05 Q6H PRN Fever >100.4 or pain 1-3 Apixaban 5 mg 09/27/25 09:00 09/28/25 08:00 Apixaban 2.5 Mg Tablet PO 10/27/25 08:59 5 mg BID YOAV Administration Carbamazepine 300 mg 09/27/25 09:00 09/28/25 08:00 Carbamazepine 100 Mg Chew PO 10/27/25 08:59 300 mg BID YOAV Administration Carvedilol 3.125 mg 09/27/25 17:45 09/28/25 08:11 Carvedilol 3.125 Mg Tablet PO 10/27/25 17:44 3.125 mg BIDWM YOAV Administration Docusate Sodium 100 mg 09/27/25 09:00 09/28/25 08:08 Docusate Sod 100 Mg Capsule PO 10/27/25 08:59 100 mg QDAY YOAV Administration Protocol Duloxetine HCl 25 mg 09/27/25 09:00 09/28/25 08:06 Duloxetine Hcl 20 Mg Capsule PO 10/27/25 08:59 25 mg QDAY YOAV Administration Famotidine 20 mg 09/27/25 09:00 09/28/25 08:11 Famotidine Inj 10 Mg/Ml Vial 2 Ml IVP 10/27/25 08:59 20 mg Q12HR YOAV Administration Hydroxychloroquine Sulfate 200 mg 09/27/25 09:00 09/28/25 08:11 Hydroxychloroquine 200 Mg Tablet PO 10/04/25 08:59 200 mg QDAY YOAV Administration Levetiracetam 500 mg 09/28/25 09:00 09/28/25 08:10 Levetiracetam 250 Mg Tablet PO 10/28/25 08:59 500 mg BID YOAV Administration Lorazepam 2 mg 09/27/25 01:21 09/27/25 15:11 Lorazepam 2 Mg/Ml Vial IVP 10/02/25 01:20 2 mg Q8HR PRN Administration Seizure Activity Ondansetron HCl 4 mg 09/26/25 23:06 Ondansetron Inj 2 Mg/Ml Inj 2 Ml IVP 10/26/25 23:05 Q6H PRN NAUSEA OR VOMITING Protocol Plan 24-year-old female with multifocal epileptic seizures, antiphospholipid syndrome on hydroxychloroquine + Eliquis, history of atrial thrombus, and depression, admitted for breakthrough seizure-like episodes with abnormal EEG showing bilateral anterior temporal epileptiform discharges. # Seizure disorder ? breakthrough episodes Several breakthrough focal-impaired awareness?type seizures over past several days. 09/27 EEG abnormal with temporal spikes. Likely true epileptic activity. No metabolic triggers identified. Aptiom unavailable; carbamazepine used as equivalent substitution. Plan: * Continue Keppra 500 mg daily * Continue Carbamazepine 300 mg BID * Ativan 2 mg IVP PRN for seizures * Seizure precautions * Neurology (Dr. Montero) following; pending further recs # Depression Restarted duloxetine 25 mg daily two weeks ago. No active signs of bleeding. Plan: * Continue duloxetine 25 mg daily * Monitor for bleeding (given Eliquis) # Thrombocytopenia Chronic mild thrombocytopenia (101 -> 95). No bleeding. Plan: * Trend CBC * If <50 or bleeding develops, will re-evaluate Balwinder # Antiphospholipid syndrome (APLA) On hydroxychloroquine (Plaquenil) as part of her APLA management. Also on Eliquis due to prior atrial thrombus. Plan: * Continue hydroxychloroquine 200 mg daily * Continue Eliquis 5 mg BID * Continue Carvedilol 3.125 mg BID # History of atrial thrombus 09/27 showed a calcified mass in the right atrium and 9 mm calcification at the posterior margin of the right atrium. Stable, no current symptoms. Plan: * Continue Eliquis + Carvedilol as above. * Ordered 09/28 TTE, will consult Cardiology on 09/29 # Pulmonary mass Incidental 29 mm RML mass Plan: * Ordered CT chest w/ contrast * PCP follow-up referral Health Maintenance: Diet: Regular DVT prophylaxis: Eliquis (already therapeutic) GI prophylaxis: Famotidine Code: Full Disposition: Continue observation on Tele. Await Neurology and Cardiology recommendations before considering discharge. ----- Plan discussed with attending physician Dr. Abdoulaye Denson, PGY-1 Internal Medicine Attending Provider Attestation/Addendum I have examined the patient, reviewed labs and imaging findings, discussed the case with the resident(s), and reviewed entered orders. I agree with the plan of care as outlined in this note, with these additional summaries/recommendations: Patient seen at bedside. She one episode of seizure like activity yesterday that terminated with Ativan. Patient was admitted for breakthrough seizure. Patient has history of seizure disorder starting in childhood per patient has a history of difficult to control seizures. She endorses medication compliance and denies any significant stressors or changes in medications. She takes Aptiom and Keppra at home for antiepileptic regimen. EEG obtained overnight revealed localized spike and wave activity in bilateral anterior temporal lobes consistent with seizures. In-house neurology consulted, recommendations appreciated. As needed Ativan for breakthrough seizure and seizure precautions. Patient reports she currently does not work or operate a motor vehicle. Chest x-ray on admission showed 29 mm pulmonary mass which projects into the right middle lobe and we will obtain CT scan of chest. CT chest was obtained which was negative for pulmonary mass but did reveal calcified mass 40X 26 mm in the right atrium and 9 mm calcification at the posterior margin of the right atrium. Patient does have history of atrial thrombus and is rare for atrial thrombus to become calcified but it is possible. Nonetheless we will obtain echocardiogram and if findings confirmed we will consult cardiology. Patient has history of antiphospholipid syndrome on hydroxychloroquine and in Eliquis which we will continue. Patient updated on the plan and agreement. All questions answered to satisfaction. Please see residents note for additional details and management. Dr. Abdoulaye MD
[2025-09-28 14:19] LABS: Cocci Serology, IgG Negative (Negative)
--- NOTE | 2025-09-28 16:23 | PC.SS ---
Rounding: pending echo
[2025-09-28] MEDS: LORazepam 2 MG/ML VIAL IVP (17:09)
[2025-09-28] MEDS: LACOSAMIDE 50 MG TABLET 200 MG PO (18:47)
--- NOTE | 2025-09-28 23:51 | PD.VPROG1 ---
Telemedicine visit statement This visit was conducted with the use of phone was obtained on 09/28/25 at 2351. Documentation for date of: 09/28/25 Subjective Subjective Interval history: Patient is in MedSurg. No seizures reported overnight. Reportedly having problems with the Keppra with high doses in the past with mood symptoms and refused to take higher dose of Keppra now. Virtual exam Vital Signs Temp Pulse Resp BP Pulse Ox O2 Del Method 97.9 F 87 18 102/74 97 Room Air 09/28/25 20:00 09/28/25 20:00 09/28/25 20:00 09/28/25 20:00 09/28/25 20:00 09/28/25 20:00 Objective Labs 09/28/25 04:44 09/28/25 04:44 Labs: Laboratory Results - last 24 hr 09/27/25 09/28/25 10:40 04:44 WBC 6.5 RBC 5.22 H Hgb 13.5 Hct 40.4 MCV 77 L MCH 25.9 MCHC 33.4 RDW Std Deviation 36.2 L Plt Count 90 L Neut % (Auto) 53 Lymph % (Auto) 34 [place] % (Auto) 11 Eos % (Auto) 1 Baso % (Auto) 0 Neut # (Auto) 3.5 Lymph # (Auto) 2.2 [place] # (Auto) 0.7 Eos # (Auto) 0.1 Baso # (Auto) 0.0 Immature Gran # (Auto) 0.02 H Absolute Nucleated RBC 0.00 Immature Gran % 0 Nucleated RBC % 0 Sodium 142 Potassium 3.9 D Chloride 104 Carbon Dioxide 26.7 Anion Gap 11 BUN 8 L Creatinine 0.8 Estim Creat Clear Calc 89.4 eGFR > 60 BUN/Creatinine Ratio 10 L Glucose 78 Calculated Osmolality 280 Calcium 9.7 Corrected Calcium 9.7 Phosphorus 4.8 Magnesium 1.8 Total Bilirubin 0.5 AST 24 ALT 35 Alkaline Phosphatase 96 Total Protein 6.8 Albumin 4.4 Globulin 2.4 Albumin/Globulin Ratio 1.8 Coccidioides IgG Ab Negative Assessment & Plan Problem List (1) Breakthrough seizure: Status: Acute Assessment and plan: As the EEG shows abnormal study with epileptiform discharges, will add Vimpat 200 mg x1 followed by 100 mg bid as she cannot tolerate SE from higher dose of Keppra Continue with the carbamazepine 300 mg twice a day as Aptiom is nonformulary. Continue to follow seizure precautions and avoid seizure triggers. Advised her about the importance of compliance to prevent recurrence of breakthrough seizures. Upon discharge, will d/c Keppra and keep her on Vimpat and Aptiom.
[2025-09-29] VITALS (10 sets, daily range): BP systolic 101–146; BP diastolic 65–99; PULSE 70–116; RESP 17–21; TEMP 36.1–36.6; O2SAT 95–99
[2025-09-29 05:35] LABS: Basophils # (Auto) 0.0 Thou/mm3 (0.0-0.2); Basophils % (Auto) 0 % (0-2.5); Eosinophils # (Auto) 0.1 Thou/mm3 (0.0-0.5); Eosinophils % (Auto) 1 % (0-10); Hematocrit 37.8 % (36.0-46.0); Hemoglobin 12.7 g/dL (12.0-16.0); Immature Granulocytes Auto 0.01 Thou/mm3 (0.00-0.00); Lymphocytes # (Auto) 2.6 Thou/mm3 (1.0-4.8); Lymphocytes % (Auto) 38 % (10-50); Mean Corpuscular HGB Conc 33.6 g/dl (31.0-37.0); Mean Corpuscular Hemoglobin 26.1 pg (25.0-35.0); Mean Corpuscular Volume 78 fL (80-100); Monocytes # (Auto) 0.7 Thou/mm3 (0.0-0.8); Monocytes % (Auto) 10 % (0-12); Neutrophils # (Auto) 3.5 Thou/mm3 (1.8-7.7); Neutrophils % (Auto) 50 % (37-80); Nucleated Red Blood Cell # 0.00 Thou/mm3 (0.00-0.00); Nucleated Red Blood Cell % 0 /100 WBC (0); Platelet Count 87 Thou/mm3 (140-440); RDW Standard Deviation 36.4 fL (36.4-46.3); Red Blood Count 4.86 Miln/mm3 (4.00-5.20); White Blood Count 6.9 Thou/mm3 (3.6-11.0)
[2025-09-29 05:51] LABS: Alanine Aminotransferase 36 U/L (10-49); Albumin, Serum 4.2 gm/dL (3.5-5.0); Albumin/Globulin Ratio 2.2 (1.2-2.2); Alkaline Phosphatase 82 U/L (46-116); Anion Gap 10 (7-16); Aspartate Amino Transferase 28 U/L (0-34); BUN/Creatinine Ratio 15 Ratio (12-20); Bilirubin,Total 0.3 mg/dL (0.3-1.2); Blood Urea Nitrogen 12 mg/dL (9-23); Calcium 9.1 mg/dL (8.3-10.6); Calcium (Corrected) 9.1 mg/dL (8.5-10.1); Carbon Dioxide 26.2 mMol/L (20.0-31.0); Chloride 107 mMol/L (98-107); Creatinine (Component) 0.8 mg/dL (0.6-1.3); Estimated Creatinine Clearance 89.4 mL/min (>60); Globulin 1.9 gm/dL (2.3-3.5); Glucose 79 mg/dL (74-106); Magnesium 1.8 mg/dL (1.6-2.6); Osmolality,Calculated 283 (275-295); Phosphorous 4.8 mg/dL (2.4-5.1); Potassium 4.2 mMol/L (3.4-5.1); Sodium 143 mMol/L (136-145); Total Protein 6.1 gm/dL (5.7-8.2); eGFR > 60 See Note
[2025-09-29] MEDS: APIXABAN 2.5 MG TABLET 5 MG PO ×2 (08:14→20:32)
[2025-09-29] MEDS: DULoxetine HCL 20 MG CAPSULE PO (08:15)
[2025-09-29] MEDS: HYDROXYCHLOROQUINE 200 MG TABLET PO (08:15)
[2025-09-29] MEDS: DOCUSATE SOD 100 MG CAPSULE PO (08:15)
[2025-09-29] MEDS: FAMOTIDINE INJ 10 MG/ML VIAL 2 ML 20 MG IVP ×2 (08:16→20:33)
[2025-09-29] MEDS: LACOSAMIDE 50 MG TABLET 100 MG PO (08:16)
--- NOTE | 2025-09-29 10:39 | ESPR_ITS ---
<Statement entered by Yue Jean MD - 09/29/25 15:45> Patient was seen and examined by me personally. I have directly supervised and reviewed documentation by the team resident and agree with its findings with any exceptions or additional findings as below. Plan of care was discussed with the attending, Dr. Stanford. Patient today had an episode during rounds while speaking to us where she appeared to weaken and stare off into space. No rhythmic movements were noted, and patient appeared to be speaking appropriately and answering questions, just at a much slower pace and not making eye contact. Ordered stat lactic acid and prolactin to evaluate for probability of seizure activity. Patient had another episode of the same activity around noon time and Neurology recommended Ativan 2 mg IV x1 and Vimpat 100 mg PO x1 followed by increasing Vimpat daily dose from 100 to 200 mg BID. As a follow up to the CT chest on admission which was showing a calcified mass 40 x 26 mm in the right atrium, TTE was done which confirmed findings of the mass in the right atrium. Discussed with Cardiology who would like to do a follow up SEGUNDO and patient is agreeable. Will place NPO after midnight for SEGUNDO tomorrow. Reviewed the patient's external medical records which she carries in a large binder. This showed that the mass was first visualized in the right atrium in December 2024 on TTE. Patient was diagnosed with antiphopholipid syndrome, follows with Dr. Laird in [place]. Yue Jean, PGY-3 Documentation for date of: 09/29/25 Subjective Subjective Interval history: No overnight events. Patient was examined at bedside; they appear A&Ox3 and in NAD. Vitals/labs today significant for BP 146/99, platelet count 87. Physical exam was non-contributory. Yesterday, Neurology recommended that patient's Keppra be discontinued (due to patient's intolerance of its side effects) and that she be given Vimpat 200 mg x 1 followed by 100 mg BID instead with plans to send her with Vimpat and Aptiom upon discharge. However, patient had an episode of what appeared to be seizure at noon today (where she was given Ativan 2 mg IV) and her regimen was instead increased by Neurology to Vimpat 200 mg BID alongside the carbamazepine 300 mg BID she was already on. 09/28 TTE has been taken but Cardiology (Dr. Carlos) would like a SEGUNDO to better visualize the calcified masses in the right atrium tomorrow. As such, patient has been made NPO which will take effect upon midnight at the start of 09/30. This calcified mass is mysterious but may represent a calcified thrombus, a cardiac tumor such as a myxoma, or possibly a benign entity known as calcified amorphous tumor. Exam Vital Signs Temp Pulse Resp BP Pulse Ox O2 Del Method 97.4 F 80 18 146/99 H 95 Room Air 09/29/25 07:57 09/29/25 08:15 09/29/25 07:57 09/29/25 08:15 09/29/25 07:57 09/29/25 04:00 Narrative Exam General: Awake, alert, oriented ?4, speaking clearly, no acute distress. HEENT: NC/AT. PERRLA. EOMI. No tongue trauma. Oral mucosa moist. No scleral icterus. Neck: Supple, no JVD, no meningismus. Cardiac: Regular rate and rhythm. Normal S1/S2. No murmurs, rubs, or gallops. Respiratory: Non-labored breathing on room air. Lungs clear to auscultation bilaterally. No wheezes/rales/rhonchi. Abdomen: Soft, non-tender, non-distended. Normal bowel sounds. Extremities: No edema. Warm and well-perfused. No tenderness. Neuro: -Alert and oriented ?4. -Cranial nerves grossly intact. -5/5 strength in UE and LE bilaterally. -Normal coordination. -No tremor, no focal deficits. -Gait not assessed but patient moves all extremities spontaneously. Skin: Warm, dry, intact. No bruising or rashes. Psych: Appropriate mood and affect. Good insight and judgment. Objective Labs 09/29/25 04:28 09/29/25 04:28 Labs: Laboratory Results - last 24 hr 09/27/25 09/29/25 10:40 04:28 WBC 6.9 RBC 4.86 Hgb 12.7 Hct 37.8 MCV 78 L MCH 26.1 MCHC 33.6 RDW Std Deviation 36.4 Plt Count 87 L Neut % (Auto) 50 Lymph % (Auto) 38 [place] % (Auto) 10 Eos % (Auto) 1 Baso % (Auto) 0 Neut # (Auto) 3.5 Lymph # (Auto) 2.6 [place] # (Auto) 0.7 Eos # (Auto) 0.1 Baso # (Auto) 0.0 Immature Gran # (Auto) 0.01 H Absolute Nucleated RBC 0.00 Immature Gran % 0 Nucleated RBC % 0 Sodium 143 Potassium 4.2 Chloride 107 Carbon Dioxide 26.2 Anion Gap 10 BUN 12 Creatinine 0.8 Estim Creat Clear Calc 89.4 eGFR > 60 BUN/Creatinine Ratio 15 Glucose 79 Calculated Osmolality 283 Calcium 9.1 Corrected Calcium 9.1 Phosphorus 4.8 Magnesium 1.8 Total Bilirubin 0.3 AST 28 ALT 36 Alkaline Phosphatase 82 Total Protein 6.1 Albumin 4.2 Globulin 1.9 L Albumin/Globulin Ratio 2.2 Coccidioides IgG Ab Negative Quality Measures Quality Measures VTE prophylaxis Assessment & Plan Assessment Current Active Medications: Generic Name Dose Route Start Last Admin Trade Name Freq PRN Reason Stop Dose Admin Acetaminophen 650 mg 09/26/25 23:06 Acetaminophen 325 Mg Tablet PO 10/26/25 23:05 Q6H PRN Fever >100.4 or pain 1-3 Apixaban 5 mg 09/27/25 09:00 09/29/25 08:14 Apixaban 2.5 Mg Tablet PO 10/27/25 08:59 5 mg BID YOAV Administration Carbamazepine 300 mg 09/27/25 09:00 09/29/25 08:14 Carbamazepine 100 Mg Chew PO 10/27/25 08:59 300 mg BID YOAV Administration Carvedilol 3.125 mg 09/27/25 17:45 09/29/25 08:15 Carvedilol 3.125 Mg Tablet PO 10/27/25 17:44 3.125 mg BIDWM YOAV Administration Docusate Sodium 100 mg 09/27/25 09:00 09/29/25 08:15 Docusate Sod 100 Mg Capsule PO 10/27/25 08:59 100 mg QDAY YOAV Administration Protocol Duloxetine HCl 20 mg 09/28/25 12:45 09/29/25 08:15 Duloxetine Hcl 20 Mg Capsule PO 10/27/25 08:59 20 mg QDAY YOAV Administration Famotidine 20 mg 09/27/25 09:00 09/29/25 08:16 Famotidine Inj 10 Mg/Ml Vial 2 Ml IVP 10/27/25 08:59 20 mg Q12HR YOAV Administration Hydroxychloroquine Sulfate 200 mg 09/27/25 09:00 09/29/25 08:15 Hydroxychloroquine 200 Mg Tablet PO 10/04/25 08:59 200 mg QDAY YOAV Administration Lacosamide 100 mg 09/29/25 09:00 09/29/25 08:16 Lacosamide 50 Mg Tablet PO 10/29/25 08:59 100 mg BID YOAV Administration Lorazepam 2 mg 09/27/25 01:21 09/28/25 17:09 Lorazepam 2 Mg/Ml Vial IVP 10/02/25 01:20 2 mg Q8HR PRN Administration Seizure Activity Ondansetron HCl 4 mg 09/26/25 23:06 Ondansetron Inj 2 Mg/Ml Inj 2 Ml IVP 10/26/25 23:05 Q6H PRN NAUSEA OR VOMITING Protocol Plan 24-year-old female with multifocal epileptic seizures, antiphospholipid syndrome on hydroxychloroquine + Eliquis, history of atrial thrombus, and depression, admitted for breakthrough seizure-like episodes with abnormal EEG showing bilateral anterior temporal epileptiform discharges. # Seizure disorder ? breakthrough episodes Several breakthrough focal-impaired awareness?type seizures over past several days. 09/27 EEG abnormal with temporal spikes. Likely true epileptic activity. No metabolic triggers identified. Aptiom unavailable; carbamazepine used as equivalent substitution. 09/29 breakthrough seizure while on Vimpat 100 mg BID and carbamazepine 300 mg BID Plan: * Discontinued Keppra 500 mg qD * Started Vimpat 200 mg BID * Continue Carbamazepine 300 mg BID * Ativan 2 mg IVP PRN for seizures * Seizure precautions * Plan to discharge patient with Vimpat and Aptiom (dosages to be specified by Neurology) * Neurology (Dr. Montero) following; pending further recs # Depression Restarted duloxetine 25 mg daily two weeks ago. No active signs of bleeding. Plan: * Continue duloxetine 25 mg daily * Monitor for bleeding (given Eliquis) # Thrombocytopenia Chronic mild thrombocytopenia (101 -> 95). No bleeding. Plan: * Trend CBC * If <50 or bleeding develops, will re-evaluate Eliquis # Antiphospholipid syndrome (APLA) On hydroxychloroquine (Plaquenil) as part of her APLA management. Also on Eliquis due to prior atrial thrombus. Plan: * Continue hydroxychloroquine 200 mg daily * Continue Eliquis 5 mg BID * Continue Carvedilol 3.125 mg BID # History of atrial thrombus 09/27 showed a calcified mass in the right atrium and 9 mm calcification at the posterior margin of the right atrium. Stable, no current symptoms. 09/28 TTE has been taken but Cardiology (Dr. Carlos) would like a SEGUNDO to better visualize the calcified masses in the right atrium tomorrow DDx: calcified thrombus, cardiac myxoma, calcified amorphous tumor Rx: * Continue Eliquis + Carvedilol as above. * Patient has been made NPO in anticipation of 09/30 SEGUNDO to better visualize the calcified thrombus in the right atrium # Pulmonary mass Incidental 29 mm RML mass Plan: * Ordered CT chest w/ contrast * PCP follow-up referral Health Maintenance: Diet: Regular (NPO by 09/30 midnight) DVT prophylaxis: Eliquis (already therapeutic) GI prophylaxis: Famotidine Code: Full Disposition: Continue observation on Tele. Await Neurology and Cardiology recommendations before considering discharge. Pending 09/30 SEGUNDO to visualize calcified thrombus of right atrium. ----- Plan discussed with attending physician Dr. Abdoulaye Denson, DO PGY-1 Internal Medicine Attending Provider Attestation/Addendum I have examined the patient, reviewed labs and imaging findings, discussed the case with the resident(s), and reviewed entered orders. I agree with the plan of care as outlined in this note, with these additional summaries/recommendations: Patient seen at bedside. Today during my evaluation patient stated she was having a seizure. She was able to speak throughout the episode and did not appear to lose consciousness. Etiology possibly presyncope versus seizure. Stat lactic acid was obtained which was within normal limits and procalcitonin sent out. In-house neurology following for seizure disorder. Continue carbamazepine & Vimpat. 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 EEG obtained overnight revealed localized spike and wave activity in bilateral anterior temporal lobes consistent with seizures. As needed Ativan for breakthrough seizure and seizure precautions. Patient has a history of atrial thrombus. Apparently diagnosed by Dr. Laird cardiology in [place] in December of this year. CT chest was obtained which revealed calcified mass 40X 26 mm in the right atrium and 9 mm calcification at the posterior margin of the right atrium. Unclear if this is a calcified atrial thrombus which is rare or myxoma. Nonetheless cardiology consulted, with plans for transesophageal echocardiogram tomorrow 09/30. Patient in agreement. Patient has history of antiphospholipid syndrome on hydroxychloroquine and in Eliquis which we will continue. Patient updated on the plan and agreement. All questions answered to satisfaction. Please see residents note for additional details and management. Dr. Abdoulaye MD
[2025-09-29 12:27] LABS: Lactate (Lactic Acid) 1.0 mMol/L (0.4-2.0)
[2025-09-29] MEDS: ONDANSETRON INJ 2 MG/ML INJ 2 ML 4 MG IVP (12:27)
[2025-09-29] MEDS: LORazepam 2 MG/ML VIAL IVP (12:31)
[2025-09-29] MEDS: RINGERS LACTATED 500 ML 500 ML 999 ML IV (12:39)
[2025-09-29] MEDS: SODIUM CHLORIDE 0.9% 1000 ML 1,000 ML 125 ML IV (12:43)
--- NOTE | 2025-09-29 13:00 | PC.NURSE ---
DR. JETT CALLED AND MADE AWARE OF SEIZURE AT 1227, ORDERS RECEIVED, READ BACK AND CARRIED OUT.
--- NOTE | 2025-09-29 13:27 | PC.NURSE ---
DR. MORGAN MADE AWARE OF DR. BENNETT ORDERS, SHE WILL CALL DR. JETT AND CLARIFY ORDERS.
--- NOTE | 2025-09-29 13:54 | PC.SS ---
Rounding: Cardio following, ECHO pending, DC home when ready
[2025-09-29 14:12] LABS: Misc Send Out* See Sep Rpt
--- NOTE | 2025-09-29 14:26 | PD.RESCONSUL ---
HPI Data of Consult Requesting Physician: Catrachita Larson MD Admitting Provider: Catrachita Larson MD Attending Provider: Catrachita Larson MD Primary Care Provider: Physician No Primary/Family Consult Narrative Reason for consult: For the Right Atrial Mass History of present illness: Lakesha is a 24-year-old female with past medical history of seizure disorder, APLA, depression, anxiety presented to the ED for worsening seizures frequency. Her first seizure episode was in November 2023 with tonic- clonic seizures with aura like blackening of vision and seizure episode associated with biting of tongue, teeth and drooling of saliva during the first episode with no bowel and bladder incontinence. After that she consulted neurologist and was kept on Keppra and Aptiom 1200 mg. She has been having on and off seizure episodes throughout the course and been managing by increasing and decreasing the dosage of Keppra and Aptiom. Earlier last week she had a seizure episode starting on 09/24 with 1 episode, she had 2 episodes, Monday 3 episodes which prompted her to the ED visit. She describes she has decreased vision sometimes blue/black, shortness of breath, feeling of warmth, increased sweating, stomach squeezing sensation before the seizure episode and she feels like the continuation of this symptoms into the seizure episode. She also states that during the seizure episode she asked very slow and talks very slow according to her sister who observed a seizure episode at home. while I am taking the history she had couple of seizure episodes during the aural phase she responds to the questions but very slow on answering and during 1 episode she shook her arms and head. There is no postictal confusion. She also complains that she has been having weakness on the left side of the body since 3 months and she feels tingling sensation in the left lower extremity. She complains of sharp chest pain below the left rib cage short-lived associated with heart racing and missed beat sensation going on for a while but worsening since last 3 weeks which occurs randomly not essentially related to any exertion associated with deep inspiration. She has been feeling dizzy while she lifts some weight and before seizure episode and with positional changes as well but denies any loss of consciousness, fall, orthopnea, PND, leg swelling, abdominal distention. She went to Dr. Laird at [place] last year at first to workup for her pain and her dizziness symptoms where she got apparently diagnosed with she is having right atrial thrombus and was started on carvedilol and Eliquis. She also complains of occasional twitching episodes of her hands and states that she had been worsening vision in the left eye as well. She states that the vision is getting worsening in the last few months. She denies any tinnitus, severe headaches. Her appetite has been poor over the past few months and she is baseline constipated but denies any vomitings, hematemesis, melena. When she had lab work done for starting of antidepressant drugs in 2014 she was incidentally found she had abnormal DOMENICO levels and was diagnosed with antiphospholipid antibody syndrome by Dr. Martines in 2018 and she was on hydroxychloroquine for that. Past medical history: As Stated above Medicines she is taking right now at home Eliquis 5 mg twice daily, carvedilol 3.125 mg twice daily, Keppra 500 mg daily, Aptiom 1200 mg, duloxetine 20 mg, hydroxychloroquine 200 mg, vitamin D3 . Menstrual history: She had early menarche at 7 to 8 years and ever since she has been having irregular menstrual cycle sometimes delaying for months and sometimes occurring regularly, bleeding heavily for 5 to 7 days when it occurs associated with cramping pain as well. Allergic history: Allergic to Bactrim and she has been getting aggressive and abusive when she is taking high doses of Keppra. Family history: History of seizure disorder on her paternal side cousin and stomach cancer paternal grandmother. Atrial fibrillation in her father. Depression and osteoporosis in her mother. Social history: Denies any alcohol, smoking or any other drug usage. She completed 12th grade and has been at home for the last few years because of her ongoing medical conditions. ED course and Hospitalization course: Vitals: BP 142/97 HR 83 RR 18 T 98.2F O2 sat 97% Labs: Plt 101, APTT 40.2 UA unremarkable other than few sq. epithelial cells Imaging: EKG sinus rhythm with sinus arrhythmia QTc [address] Negative for acute hemorrhage, mass effect or midline shift CXR EEG revealed localized spike and wave activity in bilateral anterior temporal lobes consistent with seizures.. CT chest was obtained which revealed calcified mass 40X 26 mm in the right atrium and 9 mm calcification at the posterior margin of the right atrium.She is on Lacosamide 100mg BID and Carbamazepine 300mg BID cc:: cc: Catrachita Larson MD Exam Vital Signs Temp Pulse Resp BP Pulse Ox O2 Del Method 97.2 F 81 18 126/90 H 99 Room Air 09/29/25 12:00 09/29/25 12:47 09/29/25 12:00 09/29/25 12:00 09/29/25 12:00 09/29/25 12:00 Narrative Exam GENERAL: NAD, AAOx3 HEENT: Moist mucosa. Eyes open, symmetrical, & clear CARDIO: Regular rhythm Noted. No Murmurs. PULM: No noted coughing/dyspnea CTA B/L, no R/W/R GI: Abdomen soft, nondistended, non Tender SKIN/MSK/EXT: No wounds/rashes/amputations, no pain on palpation. Pedal pulses present B/L. She is short statured ,obese,with increased hair overall the body NEURO: AAOx3, no focal neuro deficits, able to move all 4 extremities Results Labs 09/29/25 04:28 09/29/25 04:28 Labs: Short CBC 09/29/25 Range/Units 04:28 WBC 6.9 (3.6-11.0) Thou/mm3 Hgb 12.7 (12.0-16.0) g/dL Hct 37.8 (36.0-46.0) % Plt Count 87 L (140-440) Thou/mm3 BMP 09/29/25 04:28 Sodium 143 Potassium 4.2 Chloride 107 Carbon Dioxide 26.2 BUN 12 Creatinine 0.8 Glucose 79 Calcium 9.1 Liver Function 09/29/25 Range/Units 04:28 Total Bilirubin 0.3 (0.3-1.2) mg/dL AST 28 (0-34) U/L ALT 36 (10-49) U/L Alkaline Phosphatase 82 (46-116) U/L Albumin 4.2 (3.5-5.0) gm/dL Quality Measures Quality Measures VTE prophylaxis Medications Home Medications and Allergies Home Medications ?Medication ?Instructions ?Recorded ?Confirmed ?Type apixaban 5 mg tablet (Eliquis) 5 mg PO BID 09/27/25 09/27/25 History carvedilol 3.125 mg tablet 3.125 mg PO BID 09/27/25 09/27/25 History cholecalciferol (vitamin D3) 1,250 50,000 unit PO .[id number] 09/27/25 09/27/25 History mcg (50,000 unit) capsule duloxetine 20 mg capsule,delayed 20 mg PO QDAY 09/27/25 09/27/25 History release eslicarbazepine 600 mg tablet 1,200 mg PO QDAY 09/27/25 09/27/25 History (Aptiom) hydroxychloroquine 200 mg tablet 200 mg PO QDAY 09/27/25 09/27/25 History (Plaquenil) levetiracetam 500 mg tablet 500 mg PO QDAY 09/27/25 09/27/25 History Allergies Allergy/AdvReac Type Severity Reaction Status Date / Time sulfamethoxazole Allergy Mild Palpitation Verified 09/27/25 01:58 s trimethoprim Allergy Mild Palpitation Verified 09/27/25 01:58 s Visit Medications Acetaminophen (Acetaminophen 325 Mg Tablet) 650 mg PO Q6H PRN PRN Reason: Fever >100.4 or pain 1-3 Stop: 10/26/25 23:05 Apixaban (Apixaban 2.5 Mg Tablet) 5 mg PO BID [facility] Stop: 10/27/25 08:59 Last Admin: 09/29/25 08:14 Dose: 5 mg Carbamazepine (Carbamazepine 100 Mg Chew) 300 mg PO BID YOAV Stop: 10/27/25 08:59 Last Admin: 09/29/25 08:14 Dose: 300 mg Carvedilol (Carvedilol 3.125 Mg Tablet) 3.125 mg PO BIDWM [facility] Stop: 10/27/25 17:44 Last Admin: 09/29/25 08:15 Dose: 3.125 mg Docusate Sodium (Docusate Sod 100 Mg Capsule) 100 mg PO QDAY [facility]; Protocol Stop: 10/27/25 08:59 Last Admin: 09/29/25 08:15 Dose: 100 mg Duloxetine HCl (Duloxetine Hcl 20 Mg Capsule) 20 mg PO QDAY [facility] Stop: 10/27/25 08:59 Last Admin: 09/29/25 08:15 Dose: 20 mg Famotidine (Famotidine Inj 10 Mg/Ml Vial 2 Ml) 20 mg IVP Q12HR YOAV Stop: 10/27/25 08:59 Last Admin: 09/29/25 08:16 Dose: 20 mg Hydroxychloroquine Sulfate (Hydroxychloroquine 200 Mg Tablet) 200 mg PO QDAY YOAV Stop: 10/04/25 08:59 Last Admin: 09/29/25 08:15 Dose: 200 mg Sodium Chloride (Ns) 1,000 mls @ 125 mls/hr IV .Q8H YOAV Stop: 09/29/25 20:01 Last Admin: 09/29/25 12:43 Dose: 125 mls/hr Lacosamide (Lacosamide 50 Mg Tablet) 200 mg PO BID YOAV Stop: 10/29/25 20:59 Lorazepam (Lorazepam 2 Mg/Ml Vial) 2 mg IVP Q8HR PRN PRN Reason: Seizure Activity Stop: 10/02/25 01:20 Last Admin: 09/29/25 12:31 Dose: 2 mg Lorazepam (Lorazepam 2 Mg/Ml Vial) 2 mg IVP X1 PRN PRN Reason: Breakthrough seizures Ondansetron HCl (Ondansetron Inj 2 Mg/Ml Inj 2 Ml) 4 mg IVP Q6H PRN; Protocol PRN Reason: NAUSEA OR VOMITING Stop: 10/26/25 23:05 Last Admin: 09/29/25 12:27 Dose: 4 mg Discontinued Medications Carbamazepine (Carbamazepine 200 Mg Tablet) 300 mg PO BID YOAV Stop: 10/27/25 08:59 Carvedilol (Carvedilol 3.125 Mg Tablet) 3.125 mg PO BID YOAV Stop: 10/27/25 08:59 Last Admin: 09/27/25 08:25 Dose: 3.125 mg Duloxetine HCl (Duloxetine Hcl 20 Mg Capsule) 25 mg PO QDAY YOAV Stop: 10/27/25 08:59 Last Admin: 09/28/25 08:06 Dose: 25 mg Lactated Ringer's (Lactated Ringers) 1,000 mls @ 999 mls/hr IV .Q1H1M ONE Stop: 09/26/25 23:29 Last Infusion: 09/27/25 00:43 Dose: Infused Lactated Ringer's (Lactated Ringers) 500 mls @ 999 mls/hr IV .Q31M ONE Stop: 09/29/25 12:32 Last Admin: 09/29/25 12:39 Dose: 999 mls/hr Ketorolac Tromethamine (Ketorolac Inj 30 Mg/Ml Vial) 30 mg IVP X1 ONE Stop: 09/26/25 22:43 Last Admin: 09/26/25 23:18 Dose: Not Given Lacosamide (Lacosamide 50 Mg Tablet) 200 mg PO X1 ONE Stop: 09/28/25 18:01 Last Admin: 09/28/25 18:47 Dose: 200 mg Lacosamide (Lacosamide 50 Mg Tablet) 100 mg PO BID YOAV Stop: 10/28/25 20:59 Lacosamide (Lacosamide 50 Mg Tablet) 100 mg PO BID YOAV Stop: 10/29/25 08:59 Last Admin: 09/29/25 08:16 Dose: 100 mg Lacosamide (Lacosamide 50 Mg Tablet) 100 mg PO X1 ONE Stop: 09/29/25 13:03 Levetiracetam (Levetiracetam 250 Mg Tablet) 500 mg PO QDAY YOAV Stop: 10/27/25 08:59 Last Admin: 09/27/25 08:26 Dose: 500 mg Levetiracetam (Levetiracetam 250 Mg Tablet) 500 mg PO BID YOAV Stop: 10/28/25 08:59 Last Admin: 09/28/25 08:10 Dose: 500 mg Assessment & Plan Plan Lakesha is a 24-year-old female with past medical history of seizure disorder, APLA, depression, anxiety presented to the ED for worsening seizures frequency. She was admitted for seizures and cardiology was consulted for CT findings of Rt atrial Mass. # Right Atrial Mass with calcification #History of right atrial thrombus on anticoagulation started in november [address] Laird and he apparently told the patient that it is right atrial thrombus and started her on Eliquis 5 mg twice daily She has having history of APLA, having symptoms of dizziness while lifting weights and occasional positional change. She is also having episodes of palpitations which are short-lived. CT chest done showing right atrial mass -40X 26 mm in the right atrium and 9 mm calcification at the posterior margin of the right atrium. Transthoracic echo was done today and confirmed the same findings. But the mass appears more bright and most probably it is not thrombus. ?Planning for transesophageal echo for her tomorrow to visualize the mass clearly. Most probably she also requires cardiac MRI as well eventually if SEGUNDO is not informative. ?Keeping her n.p.o. overnight. # Seizure disorder She has been having increased frequency of seizures and primary team consulted neurology. EEG findings correlated with her seizure disorder. Apparently patient was told she had a mass in her brain as well. ?Manage as per neurology and primary team. # Antipohospholipid antibody syndrome. #? PCOS and irregular menstrual cycle. She has been having irregular menstrual cycles with heavy bleeding. She is obese, short stature and possibly early menarche. ?Recommended gynecology workup. # Thrombocytopenia # Depression # Anxiety ?Manage as per primary team Discussed this case with And Asmita Adame MD PGY1 Attending Provider Attestation/Addendum I have personally seen and examined the patient separately on the above date of service and discussed the plan of care with the resident. I reviewed the resident Dr. Yuan Adame consultation progress note and agree with the resident findings and plan in the note above and have also edited the documentation to reflect my findings and plan. A 24-year-old female with a past medical history of seizure disorder on medications, antiphospholipid antibody syndrome, questionable right atrial thrombus on anticoagulation diagnosed in November 2024, anxiety, early menarche, short stature, questionable PCOS and questionable calcification on brain imaging as per patient presented to the emergency department for worsening seizures and admitted to the hospital for further evaluation. Checks x-ray was done which showed questionable calcification and eventually CT chest was performed which was read as calcified mass of 40 x 26 mm in the right atrium along with the calcification of the posterior margin of the right atrium. EKG showed normal sinus rhythm without any acute ST-T changes. CT head negative and rest of the lab send vitals appear to be in the normal range. Cardiology was consulted for further evaluation of the right atrial mass/calcification. Unclear etiology of the right atrial mass with calcification and patient does have a history of questionable RA thrombus diagnosed on echocardiogram by her manager global Dr. Laird in November 2024 and since then she has been on Eliquis for anticoagulation. She apparently had stress test also performed in November 2024 along with a Holter monitoring which she was told was normal. She initially went to the manager global as she was having chest pain along with her headaches and the patient felt both were related. Reviewed the CT and does not appear to be thrombus given the significant calcification that was visible. Unclear etiology at the present moment. Rest of her history is only significant for short stature with early menarche and no previous history of any heart disease or heart surgeries. No other major surgeries but she had a history of seizures and significant headaches. Patient thinks that she has PCOS but has never been officially diagnosed. Also she was told that there was questionable calcification on her brain imaging previously does have some anxiety and depression at baseline. Echocardiogram completed today on 09/29/2025 showed 1. Calcified echodensity with mobile extension noted on the tricuspid valve and also possibly attached to the right atrium valve measuring 3 x 3 x 2 cm. Differential includes mass with possible tumor versus old calcified vegetations. Mild tricuspid regurgitation noted. Recommend SEGUNDO for further evaluation. Rest of the valves appear normal. 2. Left ventricle size is normal and systolic function is normal. Estimated ejection fraction is 60-65%. There is grade I diastolic dysfunction. 3. Right ventricle chamber size is normal and systolic function is normal. Estimated RVSP is 32 mmHg. Mild HTN. 4. There is trace mitral valve regurgitation and mild pulmonary valve regurgitation. 5. Not well visualized IVC with estimated RA pressure 8 mmHg. Primary team to check for antiphospholipid antibody syndrome. Broad differential which includes calcified right atrial thrombus, calcified cardiac mass / calcified amorphous benign tumor, degenerative valve disease including previous history of rheumatic heart disease, carcinoid heart disease, severe degenerative calcific disease but less likely as she does not have any ESRD versus congenital calcified tricuspid valve and less likely malignancy. Discussed with the patient about the need to perform a SEGUNDO given the findings of the echocardiogram as well as the CT . Patient denies any kind of swallowing problems or any kind of esophageal interventions or previous surgeries. Patient denies any kind of gastric ulcers bleeding and any other hematemesis or hematochezia. Patient denies any issues with anesthesia previously. Patient explained all the risks, benefits and alternatives of SEGUNDO including the risk of perforation, bleeding, respiratory failure secondary to sedation, injury to teeth gums esophagus and stomach. Patient understands all risks and benefits and provided consent for the procedure. We will keep her n.p.o. overnight and plan for SEGUNDO in the morning. Management of rest of the medical conditions as per primary team and other consultants. Thank you for the consult and allowing me to participate in the care of the patient. Cardiology will continue to follow. Ezra Carlos M.D. Interventional Cardiology
--- NOTE | 2025-09-29 19:26 | PC.NURSE ---
Spoke to MD Abdalla. pt bp med at 1730 was missed and okayed to give it late
[2025-09-29] MEDS: LACOSAMIDE 50 MG TABLET 200 MG PO (20:33)
--- NOTE | 2025-09-29 20:53 | ESPR_ITS ---
Documentation for date of: 09/29/25 Subjective Subjective Interval history: Patient seen today at the bedside found awake, alert, orientedx3. No overnight events reported. Vital signs and labs reviewed. Patient does have epileptic seizures however patient also has seizure episodes while remaining conscious throughout them points more towards a psychogenic component type of seizure in addition to her epileptic, family has not witnessed or cannot describe these episodes only the father was present apperantly. She states having aura type episodes prior to having these episodes which is more consistent with tonic clonic rather than what the patient is experiencing. Patient had an apparent seizure episode during the day and was given ativan. Will order repeat EEG. Will plan to do video EEG monitoring as outpatient. Plan to dc carbamazepine and keppra and at the time of discharge can continue aptium and vimpat. Exam Vital Signs Temp Pulse Resp BP Pulse Ox O2 Del Method 97.0 F 104 H 19 127/92 H 97 Room Air 09/29/25 20:00 09/29/25 20:00 09/29/25 20:00 09/29/25 20:00 09/29/25 20:00 09/29/25 16:00 Narrative Exam Physical Exam GENERAL: NAD, AAOx3 HEENT: Moist mucosa. Eyes open, symmetrical, & clear CARDIO: Heart RRR, no obvious murmurs PULM: No noted coughing/dyspnea CTA B/L, no R/W/R GI: Abdomen soft, nondistended, no pain on palpation. BSx4 SKIN/MSK/EXT: No wounds/rashes/edema/amputations, no pain on palpation. Pedal pulses present B/L NEURO: AAOx3, no focal neuro deficits, able to move all 4 extremities, Cranial nerves grossly intact, no gait disturbances Objective Labs 09/30/25 04:50 09/30/25 04:50 Labs: Laboratory Results - last 24 hr 09/29/25 09/29/25 04:28 12:09 WBC 6.9 RBC 4.86 Hgb 12.7 Hct 37.8 MCV 78 L MCH 26.1 MCHC 33.6 RDW Std Deviation 36.4 Plt Count 87 L Neut % (Auto) 50 Lymph % (Auto) 38 [place] % (Auto) 10 Eos % (Auto) 1 Baso % (Auto) 0 Neut # (Auto) 3.5 Lymph # (Auto) 2.6 [place] # (Auto) 0.7 Eos # (Auto) 0.1 Baso # (Auto) 0.0 Immature Gran # (Auto) 0.01 H Absolute Nucleated RBC 0.00 Immature Gran % 0 Nucleated RBC % 0 Sodium 143 Potassium 4.2 Chloride 107 Carbon Dioxide 26.2 Anion Gap 10 BUN 12 Creatinine 0.8 Estim Creat Clear Calc 89.4 eGFR > 60 BUN/Creatinine Ratio 15 Glucose 79 Calculated Osmolality 283 Lactic Acid 1.0 Calcium 9.1 Corrected Calcium 9.1 Phosphorus 4.8 Magnesium 1.8 Total Bilirubin 0.3 AST 28 ALT 36 Alkaline Phosphatase 82 Total Protein 6.1 Albumin 4.2 Globulin 1.9 L Albumin/Globulin Ratio 2.2 Quality Measures Quality Measures VTE prophylaxis Assessment & Plan Assessment Current Active Medications: Generic Name Dose Route Start Last Admin Trade Name Freq PRN Reason Stop Dose Admin Acetaminophen 650 mg 09/26/25 23:06 Acetaminophen 325 Mg Tablet PO 10/26/25 23:05 Q6H PRN Fever >100.4 or pain 1-3 Apixaban 5 mg 09/27/25 09:00 09/29/25 20:32 Apixaban 2.5 Mg Tablet PO 10/27/25 08:59 5 mg BID YOAV Administration Carbamazepine 300 mg 09/27/25 09:00 09/29/25 20:32 Carbamazepine 100 Mg Chew PO 10/27/25 08:59 300 mg BID YOAV Administration Carvedilol 3.125 mg 09/27/25 17:45 09/29/25 19:49 Carvedilol 3.125 Mg Tablet PO 10/27/25 17:44 3.125 mg BIDWM YOAV Administration Docusate Sodium 100 mg 09/27/25 09:00 09/29/25 08:15 Docusate Sod 100 Mg Capsule PO 10/27/25 08:59 100 mg QDAY YOAV Administration Protocol Duloxetine HCl 20 mg 09/28/25 12:45 09/29/25 08:15 Duloxetine Hcl 20 Mg Capsule PO 10/27/25 08:59 20 mg QDAY YOAV Administration Famotidine 20 mg 09/27/25 09:00 09/29/25 20:33 Famotidine Inj 10 Mg/Ml Vial 2 Ml IVP 10/27/25 08:59 20 mg Q12HR YOAV Administration Hydroxychloroquine Sulfate 200 mg 09/27/25 09:00 09/29/25 08:15 Hydroxychloroquine 200 Mg Tablet PO 10/04/25 08:59 200 mg QDAY YOAV Administration Lacosamide 200 mg 09/29/25 21:00 09/29/25 20:33 Lacosamide 50 Mg Tablet PO 10/29/25 20:59 200 mg BID YOAV Administration Lorazepam 2 mg 09/27/25 01:21 09/29/25 12:31 Lorazepam 2 Mg/Ml Vial IVP 10/02/25 01:20 2 mg Q8HR PRN Administration Seizure Activity Lorazepam 2 mg 09/29/25 12:41 Lorazepam 2 Mg/Ml Vial IVP X1 PRN Breakthrough seizures Ondansetron HCl 4 mg 09/26/25 23:06 09/29/25 12:27 Ondansetron Inj 2 Mg/Ml Inj 2 Ml IVP 10/26/25 23:05 4 mg Q6H PRN Administration NAUSEA OR VOMITING Protocol Plan 24-year-old female with multifocal epileptic seizures, antiphospholipid syndrome on hydroxychloroquine + Eliquis, history of atrial thrombus, and depression, admitted for breakthrough seizure-like episodes with abnormal EEG showing bilateral anterior temporal epileptiform discharges. #Psychogenic seizures? # Seizure disorder ? breakthrough episodes Patient with breakthrough seizures at first tonic clonic followed by multiple episodes of what rodt describes as blank stare episodes for several days EEG shows abnormal temporal spikes, likely epileptic There seems to be a psychogenic component as well. 09/29 breakthrough seizure while on Vimpat 100 mg BID and carbamazepine 300 mg BID - repeat EEG ordered - Continue vimpat 200mg bid - Continue carbamazepine 300mg bid - Ativan for breakthrough seizures - at the time of discharge can be prescribed Vimpat and Aptiom and DC keppra and carbamazepine - Follow up as outpatient for possible video EEG monitoring # Depression # Thrombocytopenia # Antiphospholipid syndrome (APLA) # History of atrial thrombus # Pulmonary mass - as per primary team Case discussed with my attending Dr. Kylah Arizmendi MD PGY-2 Attending Provider Attestation/Addendum I personally have seen and examined the patient at the bedside and agree with the residents findings, assessment and plan of care. 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 Will do a repeat EEG to evaluate further. She would need video EEG monitoring as an outpatient after the approval from her insurance to confirm. She will continue with Aptiom as before and Vimpat 200 mg twice a day upon discharge.
[2025-09-30] VITALS (19 sets, daily range): BP systolic 97–154; BP diastolic 65–110; PULSE 72–102; RESP 15–20; TEMP 36.1–36.6; O2SAT 96–100
[2025-09-30] MEDS: ONDANSETRON INJ 2 MG/ML INJ 2 ML 4 MG IVP ×3 (01:14→18:27)
--- NOTE | 2025-09-30 02:24 | RESP.EEG ---
Repeat EEG has been completed and is ready for MD interpretation
[2025-09-30 05:42] LABS: Basophils # (Auto) 0.0 Thou/mm3 (0.0-0.2); Basophils % (Auto) 0 % (0-2.5); Eosinophils # (Auto) 0.1 Thou/mm3 (0.0-0.5); Eosinophils % (Auto) 1 % (0-10); Hematocrit 36.0 % (36.0-46.0); Hemoglobin 12.0 g/dL (12.0-16.0); Immature Granulocytes Auto 0.02 Thou/mm3 (0.00-0.00); Lymphocytes # (Auto) 2.1 Thou/mm3 (1.0-4.8); Lymphocytes % (Auto) 28 % (10-50); Mean Corpuscular HGB Conc 33.3 g/dl (31.0-37.0); Mean Corpuscular Hemoglobin 25.6 pg (25.0-35.0); Mean Corpuscular Volume 77 fL (80-100); Monocytes # (Auto) 0.6 Thou/mm3 (0.0-0.8); Monocytes % (Auto) 8 % (0-12); Neutrophils # (Auto) 4.8 Thou/mm3 (1.8-7.7); Neutrophils % (Auto) 63 % (37-80); Nucleated Red Blood Cell # 0.00 Thou/mm3 (0.00-0.00); Nucleated Red Blood Cell % 0 /100 WBC (0); Platelet Count 80 Thou/mm3 (140-440); RDW Standard Deviation 35.1 fL (36.4-46.3); Red Blood Count 4.69 Miln/mm3 (4.00-5.20); White Blood Count 7.6 Thou/mm3 (3.6-11.0)
[2025-09-30 06:15] LABS: Alanine Aminotransferase 26 U/L (10-49); Albumin, Serum 3.9 gm/dL (3.5-5.0); Albumin/Globulin Ratio 2.2 (1.2-2.2); Alkaline Phosphatase 77 U/L (46-116); Anion Gap 8 (7-16); Aspartate Amino Transferase 20 U/L (0-34); BUN/Creatinine Ratio 13 Ratio (12-20); Bilirubin,Total 0.3 mg/dL (0.3-1.2); Blood Urea Nitrogen 9 mg/dL (9-23); Calcium 8.3 mg/dL (8.3-10.6); Calcium (Corrected) 8.4 mg/dL (8.5-10.1); Carbon Dioxide 25.7 mMol/L (20.0-31.0); Chloride 107 mMol/L (98-107); Creatinine (Component) 0.7 mg/dL (0.6-1.3); Estimated Creatinine Clearance 102.2 mL/min (>60); Globulin 1.8 gm/dL (2.3-3.5); Glucose 89 mg/dL (74-106); Magnesium 1.8 mg/dL (1.6-2.6); Osmolality,Calculated 278 (275-295); Phosphorous 3.4 mg/dL (2.4-5.1); Potassium 4.5 mMol/L (3.4-5.1); Sodium 141 mMol/L (136-145); Total Protein 5.7 gm/dL (5.7-8.2); eGFR > 60 See Note
[2025-09-30] MEDS: DULoxetine HCL 20 MG CAPSULE PO (09:05)
[2025-09-30] MEDS: DOCUSATE SOD 100 MG CAPSULE PO (09:06)
[2025-09-30] MEDS: LACOSAMIDE 50 MG TABLET 200 MG PO (09:06)
[2025-09-30] MEDS: HYDROXYCHLOROQUINE 200 MG TABLET PO (09:06)
[2025-09-30] MEDS: FAMOTIDINE INJ 10 MG/ML VIAL 2 ML 20 MG IVP ×2 (09:06→21:28)
--- NOTE | 2025-09-30 09:16 | PD.RESPRO ---
Documentation for date of: 09/30/25 Subjective Subjective Interval history: Patient was seen at bedside. She has been doing well. She did not have any further episodes of seizures after yesterday afternoon.However she endorses diziness whenever she stands up and feels like more dizzy which she attributes to Anti Epileptic drugs. On usual days she feels dizzy during preaural state which she attributes to Preaural symptoms of seizures. Planning for SEGUNDO today for her. Exam Vital Signs Temp Pulse Resp BP Pulse Ox O2 Del Method 97.1 F 90 20 124/88 H 99 Room Air 09/30/25 08:00 09/30/25 09:06 09/30/25 08:00 09/30/25 09:06 09/30/25 08:00 09/30/25 08:00 Objective Labs 10/01/25 04:35 10/01/25 04:35 Labs: Laboratory Results - last 24 hr 09/29/25 09/30/25 12:09 04:50 WBC 7.6 RBC 4.69 Hgb 12.0 Hct 36.0 MCV 77 L MCH 25.6 MCHC 33.3 RDW Std Deviation 35.1 L Plt Count 80 L Neut % (Auto) 63 Lymph % (Auto) 28 [place] % (Auto) 8 Eos % (Auto) 1 Baso % (Auto) 0 Neut # (Auto) 4.8 Lymph # (Auto) 2.1 [place] # (Auto) 0.6 Eos # (Auto) 0.1 Baso # (Auto) 0.0 Immature Gran # (Auto) 0.02 H Absolute Nucleated RBC 0.00 Immature Gran % 0 Nucleated RBC % 0 Sodium 141 Potassium 4.5 Chloride 107 Carbon Dioxide 25.7 Anion Gap 8 BUN 9 Creatinine 0.7 Estim Creat Clear Calc 102.2 eGFR > 60 BUN/Creatinine Ratio 13 Glucose 89 Calculated Osmolality 278 Lactic Acid 1.0 Calcium 8.3 Corrected Calcium 8.4 L Phosphorus 3.4 Magnesium 1.8 Total Bilirubin 0.3 AST 20 ALT 26 Alkaline Phosphatase 77 Total Protein 5.7 Albumin 3.9 Globulin 1.8 L Albumin/Globulin Ratio 2.2 Quality Measures Quality Measures VTE prophylaxis Assessment & Plan Assessment Current Active Medications: Generic Name Dose Route Start Last Admin Trade Name Freq PRN Reason Stop Dose Admin Acetaminophen 650 mg 09/26/25 23:06 Acetaminophen 325 Mg Tablet PO 10/26/25 23:05 Q6H PRN Fever >100.4 or pain 1-3 Apixaban 5 mg 09/27/25 09:00 09/30/25 09:07 Apixaban 2.5 Mg Tablet PO 10/27/25 08:59 Not Given BID YOAV Carbamazepine 300 mg 09/27/25 09:00 09/30/25 09:05 Carbamazepine 100 Mg Chew PO 10/27/25 08:59 300 mg BID YOAV Administration Carvedilol 3.125 mg 09/27/25 17:45 09/30/25 09:06 Carvedilol 3.125 Mg Tablet PO 10/27/25 17:44 3.125 mg BIDWM YOAV Administration Docusate Sodium 100 mg 09/27/25 09:00 09/30/25 09:06 Docusate Sod 100 Mg Capsule PO 10/27/25 08:59 100 mg QDAY YOAV Administration Protocol Duloxetine HCl 20 mg 09/28/25 12:45 09/30/25 09:05 Duloxetine Hcl 20 Mg Capsule PO 10/27/25 08:59 20 mg QDAY YOAV Administration Famotidine 20 mg 09/27/25 09:00 09/30/25 09:06 Famotidine Inj 10 Mg/Ml Vial 2 Ml IVP 10/27/25 08:59 20 mg Q12HR YOAV Administration Hydroxychloroquine Sulfate 200 mg 09/27/25 09:00 09/30/25 09:06 Hydroxychloroquine 200 Mg Tablet PO 10/04/25 08:59 200 mg QDAY YOAV Administration Lacosamide 200 mg 09/29/25 21:00 09/30/25 09:06 Lacosamide 50 Mg Tablet PO 10/29/25 20:59 200 mg BID YOAV Administration Lorazepam 2 mg 09/27/25 01:21 09/29/25 12:31 Lorazepam 2 Mg/Ml Vial IVP 10/02/25 01:20 2 mg Q8HR PRN Administration Seizure Activity Lorazepam 2 mg 09/29/25 12:41 Lorazepam 2 Mg/Ml Vial IVP X1 PRN Breakthrough seizures Ondansetron HCl 4 mg 09/26/25 23:06 09/30/25 01:14 Ondansetron Inj 2 Mg/Ml Inj 2 Ml IVP 10/26/25 23:05 4 mg Q6H PRN Administration NAUSEA OR VOMITING Protocol Tylor Crowder is a 24-year-old female with past medical history of seizure disorder, APLA, depression, anxiety presented to the ED for worsening seizures frequency. She was admitted for seizures and cardiology was consulted for CT findings of Rt atrial Mass. # Right Atrial Mass with calcification #History of right atrial thrombus on anticoagulation started in november [address] Laird and he apparently told the patient that it is right atrial thrombus and started her on Eliquis 5 mg twice daily She has having history of APLA, having symptoms of dizziness while lifting weights and occasional positional change. She is also having episodes of palpitations which are short-lived. CT chest done showing right atrial mass -40X 26 mm in the right atrium and 9 mm calcification at the posterior margin of the right atrium. Trans Thoraxic Echocardiogram completed today on 09/29/2025 showed 1. Calcified echodensity with mobile extension noted on the tricuspid valve and also possibly attached to the right atrium valve measuring 3 x 3 x 2 cm. Differential includes mass with possible tumor versus old calcified vegetations. Mild tricuspid regurgitation noted. Recommend SEGUNDO for further evaluation. Rest of the valves appear normal. 2. Left ventricle size is normal and systolic function is normal. Estimated ejection fraction is 60-65%. There is grade I diastolic dysfunction. 3. Right ventricle chamber size is normal and systolic function is normal. Estimated RVSP is 32 mmHg. Mild HTN. 4. There is trace mitral valve regurgitation and mild pulmonary valve regurgitation. 5. Not well visualized IVC with estimated RA pressure 8 mmHg. Broad differential which includes calcified right atrial thrombus, calcified cardiac mass / calcified amorphous benign tumor, degenerative valve disease including previous history of rheumatic heart disease, carcinoid heart disease, severe degenerative calcific disease but less likely as she does not have any ESRD versus congenital calcified tricuspid valve and less likely malignancy. Transesophageal echo was done today awaiting Images from management services technician. # Seizure disorder She has been having increased frequency of seizures and primary team consulted neurology. EEG findings correlated with her seizure disorder. Apparently patient was told she had a mass in her brain as well. ?Manage as per neurology and primary team. # Antipohospholipid antibody syndrome. #? PCOS and irregular menstrual cycle. She has been having irregular menstrual cycles with heavy bleeding. She is obese, short stature and possibly early menarche. ?Recommended gynecology workup. # Thrombocytopenia # Depression # Anxiety ?Manage as per primary team Discussed this case with Dr. Breanna Adame MD PGY1 Attending Provider Attestation/Addendum I have personally seen and examined the patient separately on the above date of service and discussed the plan of care with the resident. I reviewed the resident Dr. Yuan Adame consultation progress note and agree with the resident findings and plan in the note above and have also edited the documentation to reflect my findings and plan. Ezra Carlos M.D. Interventional Cardiology
[2025-09-30] MEDS: SODIUM CHLORIDE 0.9% 1000 ML 1,000 ML 125 ML IV ×2 (10:12→17:45)
--- NOTE | 2025-09-30 12:30 | ECHO_ITS ---
Patient Info Name: Lakesha Edward Age: 24 years : 2000 Gender: Female Ht: 137 cm Wt: 73 kg BSA: 1.72 m2 BP: 153 / 100 mmHg HR: 75 bpm Exam Date: 09/30/2025 12:36 PM Admit Date: 09/29/2025 Site: [facility] Room Number: Music Assistant Patient Status: I Exam Type: CA echo transesophageal Area Forester: Nisreen Pratt Ordering Physician: Ezra Carlos Study Info Indications atrial mass - Primary Location: [id number] Tricuspid Valve Name Value Normal TV Regurgitation Doppler TR Peak Velocity 229 cm/s TR VTI 37 cm Left Ventricle Left ventricular systolic function is normal with visually estimated ejection fraction of 60-65%. Mitral Valve There is trace mitral valve regurgitation. Tricuspid Valve There is mild to moderate tricuspid valve regurgitation. Pericardium/Pleural There is no pericardial effusion. Summary 1. SEGUNDO showed significantly calcified tricuspid leaflet especially the septal leaflet including the adjacent right atrial wall. Measuring around 3 x 3 x 2 cm. Mild tricuspid regurgitation noted. Mean pressure across the tricuspid valve was 3 mmHg. Brought differential includes possible healed old vegetations with calcification or congenital tricuspid calcification or benign tumor and unlikely thrombus. Recommend clinical correlation along with cardiac MRI. 2. Left ventricle size is normal and systolic function is normal. Estimated ejection fraction is 60-65%. There is indeterminate diastolic function. 3. Right ventricle chamber size is normal and systolic function is normal. 4. There is trace mitral valve regurgitation, trace PI and mild TR. 5. No evidence of PFO or ASD. There was no LA or EVA thrombus. Report Signatures Finalized by Ezra Carlos on 10/02/2025 08:23 PM
[2025-09-30] MEDS: MIDAZOLAM INJ 1 MG/ML VIAL 2 ML 5.5 MG IVP (12:36)
[2025-09-30] MEDS: fentaNYL CIT INJ 50 mCg/ML AMP 2ML 100 MCG IVP (12:37)
[2025-09-30] MEDS: BENZOCAINE 20% (Hurricaine) SPRAY 1 DOSE TOP (13:10)
--- NOTE | 2025-09-30 14:12 | PC.NURSE ---
hand off report given to joey lobo. patient transferred via gurney back to room. patient alert and oriented. gcs of 15 but sleepy. easily arousable. vital signs stable.
--- NOTE | 2025-09-30 16:26 | ESPR_ITS ---
<Statement entered by Yue Jean MD - 09/30/25 18:18> Patient was seen and examined by me personally. I have directly supervised and reviewed documentation by the team resident and agree with its findings with any exceptions or additional findings as below. Plan of care was discussed with the attending, Dr. Guaman. Patient is planned for SEGUNDO today for evaluation of right atrial thrombus. Patient had another episode of staring behaviors, recorded by her father, which did not appear to be seizure like activity. RNs also reported that patient was talking and paying attention during these episodes. Will continue home medications which patient brought from home Aptiom, and continue seizure medication lacosamide 200 mg BID. Will plan to discharge tomorrow. Yue Jean, PGY-3 Documentation for date of: 09/30/25 Subjective Subjective Interval history: Patient is planned for SEGUNDO today for evaluation of the calcified masses in the right atrium as requested by Cardiology (Dr. Carlos). Patient was also reported today to have another episode of staring behaviors, recorded by her father, which did not appear to be typical seizure-like activity. RNs also reported that patient was talking and paying attention during these episodes. Will restart patient on her home anti-epileptic of Aptiom which the hospital does not carry but she has brought from home and continue seizure medication Vimpat 200 mg BID. Will plan to discharge tomorrow. Exam Vital Signs Temp Pulse Resp BP Pulse Ox O2 Del Method O2 Flow Rate 97.0 F 92 15 109/77 97 Room Air 2 09/30/25 16:00 09/30/25 16:00 09/30/25 16:00 09/30/25 16:00 09/30/25 16:00 09/30/25 16:00 09/30/25 13:05 Narrative Exam General: Awake, alert, oriented ?4, speaking clearly, no acute distress. HEENT: NC/AT. PERRLA. EOMI. No tongue trauma. Oral mucosa moist. No scleral icterus. Neck: Supple, no JVD, no meningismus. Cardiac: Regular rate and rhythm. Normal S1/S2. No murmurs, rubs, or gallops. Respiratory: Non-labored breathing on room air. Lungs clear to auscultation bilaterally. No wheezes/rales/rhonchi. Abdomen: Soft, non-tender, non-distended. Normal bowel sounds. Extremities: No edema. Warm and well-perfused. No tenderness. Neuro: -Alert and oriented ?4. -Cranial nerves grossly intact. -5/5 strength in UE and LE bilaterally. -Normal coordination. -No tremor, no focal deficits. -Gait not assessed but patient moves all extremities spontaneously. Skin: Warm, dry, intact. No bruising or rashes. Psych: Appropriate mood and affect. Good insight and judgment. Objective Labs 09/30/25 04:50 09/30/25 04:50 Labs: Laboratory Results - last 24 hr 09/30/25 04:50 WBC 7.6 RBC 4.69 Hgb 12.0 Hct 36.0 MCV 77 L MCH 25.6 MCHC 33.3 RDW Std Deviation 35.1 L Plt Count 80 L Neut % (Auto) 63 Lymph % (Auto) 28 [place] % (Auto) 8 Eos % (Auto) 1 Baso % (Auto) 0 Neut # (Auto) 4.8 Lymph # (Auto) 2.1 [place] # (Auto) 0.6 Eos # (Auto) 0.1 Baso # (Auto) 0.0 Immature Gran # (Auto) 0.02 H Absolute Nucleated RBC 0.00 Immature Gran % 0 Nucleated RBC % 0 Sodium 141 Potassium 4.5 Chloride 107 Carbon Dioxide 25.7 Anion Gap 8 BUN 9 Creatinine 0.7 Estim Creat Clear Calc 102.2 eGFR > 60 BUN/Creatinine Ratio 13 Glucose 89 Calculated Osmolality 278 Calcium 8.3 Corrected Calcium 8.4 L Phosphorus 3.4 Magnesium 1.8 Total Bilirubin 0.3 AST 20 ALT 26 Alkaline Phosphatase 77 Total Protein 5.7 Albumin 3.9 Globulin 1.8 L Albumin/Globulin Ratio 2.2 Quality Measures Quality Measures VTE prophylaxis Assessment & Plan Assessment Current Active Medications: Generic Name Dose Route Start Last Admin Trade Name Freq PRN Reason Stop Dose Admin Acetaminophen 650 mg 09/26/25 23:06 Acetaminophen 325 Mg Tablet PO 10/26/25 23:05 Q6H PRN Fever >100.4 or pain 1-3 Apixaban 5 mg 09/27/25 09:00 09/30/25 09:07 Apixaban 2.5 Mg Tablet PO 10/27/25 08:59 Not Given BID YOAV Carbamazepine 300 mg 09/27/25 09:00 09/30/25 09:05 Carbamazepine 100 Mg Chew PO 10/27/25 08:59 300 mg BID YOAV Administration Carvedilol 3.125 mg 09/27/25 17:45 09/30/25 09:06 Carvedilol 3.125 Mg Tablet PO 10/27/25 17:44 3.125 mg BIDWM YOAV Administration Docusate Sodium 100 mg 09/27/25 09:00 09/30/25 09:06 Docusate Sod 100 Mg Capsule PO 10/27/25 08:59 100 mg QDAY YOAV Administration Protocol Duloxetine HCl 20 mg 09/28/25 12:45 09/30/25 09:05 Duloxetine Hcl 20 Mg Capsule PO 10/27/25 08:59 20 mg QDAY YOAV Administration Famotidine 20 mg 09/27/25 09:00 09/30/25 09:06 Famotidine Inj 10 Mg/Ml Vial 2 Ml IVP 10/27/25 08:59 20 mg Q12HR YOAV Administration Hydroxychloroquine Sulfate 200 mg 09/27/25 09:00 09/30/25 09:06 Hydroxychloroquine 200 Mg Tablet PO 10/04/25 08:59 200 mg QDAY YOAV Administration Sodium Chloride 1,000 mls @ 125 mls/hr 09/30/25 09:26 09/30/25 10:12 Ns IV 10/01/25 01:25 125 mls/hr .Q8H YOAV Administration Lacosamide 200 mg 09/29/25 21:00 09/30/25 09:06 Lacosamide 50 Mg Tablet PO 10/29/25 20:59 200 mg BID YOAV Administration Lorazepam 2 mg 09/27/25 01:21 09/29/25 12:31 Lorazepam 2 Mg/Ml Vial IVP 10/02/25 01:20 2 mg Q8HR PRN Administration Seizure Activity Lorazepam 2 mg 09/29/25 12:41 Lorazepam 2 Mg/Ml Vial IVP X1 PRN Breakthrough seizures Ondansetron HCl 4 mg 09/26/25 23:06 09/30/25 10:03 Ondansetron Inj 2 Mg/Ml Inj 2 Ml IVP 10/26/25 23:05 4 mg Q6H PRN Administration NAUSEA OR VOMITING Protocol Plan 24-year-old female with multifocal epileptic seizures, antiphospholipid syndrome on hydroxychloroquine + Eliquis, history of atrial thrombus, and depression, admitted for breakthrough seizure-like episodes with abnormal EEG showing bilateral anterior temporal epileptiform discharges. # Seizure disorder ? breakthrough episodes Several breakthrough focal-impaired awareness?type seizures over past several days. 09/27 EEG abnormal with temporal spikes. Likely true epileptic activity. No metabolic triggers identified. Aptiom unavailable; carbamazepine used as equivalent substitution. 09/29 breakthrough seizure while on Vimpat 100 mg BID and carbamazepine 300 mg BID Plan: * Lacosamide (Vimpat) 200 mg PO BID * Eslicarbazepine (Aptiom) 1200 mg PO qD * Ativan 2 mg IVP PRN for seizures * Seizure precautions * Plan to discharge patient with Vimpat and Aptiom (dosages to be specified by Neurology) * Neurology (Dr. Montero) following; pending further recs # Depression Restarted duloxetine 25 mg daily two weeks ago. No active signs of bleeding. Plan: * Continue duloxetine 25 mg daily * Monitor for bleeding (given Eliquis) # Thrombocytopenia Chronic mild thrombocytopenia (101 -> 95). No bleeding. Plan: * Trend CBC * If <50 or bleeding develops, will re-evaluate Eliquis # Antiphospholipid syndrome (APLA) On hydroxychloroquine (Plaquenil) as part of her APLA management. Also on Eliquis due to prior atrial thrombus. Plan: * Continue hydroxychloroquine 200 mg daily * Continue Eliquis 5 mg BID * Continue Carvedilol 3.125 mg BID # History of atrial thrombus 09/27 showed a calcified mass in the right atrium and 9 mm calcification at the posterior margin of the right atrium. Stable, no current symptoms. 09/28 TTE has been taken but Cardiology (Dr. Carlos) would like a SEGUNDO to better visualize the calcified masses in the right atrium tomorrow DDx: calcified thrombus, cardiac myxoma, calcified amorphous tumor Dx: -09/30 SEGUNDO taken, showed ___ Rx: * Continue Eliquis + Carvedilol as above. # Pulmonary mass Incidental 29 mm RML mass Plan: * Ordered CT chest w/ contrast * PCP follow-up referral Health Maintenance: Diet: Regular (NPO by 09/30 midnight) DVT prophylaxis: Eliquis (already therapeutic) GI prophylaxis: Famotidine Code: Full Disposition: Continue observation on Tele. Await Neurology and Cardiology recommendations before considering discharge. Pending 09/30 SEGUNDO read to visualize calcified thrombus of right atrium. ----- Plan discussed with attending physician Dr. Rowena Denson DO PGY-1 Internal Medicine Attending Provider Attestation/Addendum I have discussed and was present for the essential components of the history, physical examination, diagnosis, and treatment plan with the resident. I agree with the patient's care as documented by the resident and amended herein by me. Papito Guaman DO. Although this document has been carefully reviewed, there may still be some phonetic and other typographical errors. These errors are purely grammatical due to imperfections in the software program and should not be construed in any way to compromise the substance of the patient's medical care during this visit.
--- NOTE | 2025-09-30 18:29 | ESPR_ITS ---
Documentation for date of: 09/30/25 Subjective Subjective Interval history: Patient seen today at the bedside found awake, alert, orientedx3. No overnight events reported. Vital signs stable at this time. EEG does show epileptiform waves, however they do not correlate with clinical presentation, clinically patient seems to behaving a stress induced seizures on top of her current epilepsy. Recommend at discharge to be prescribed aptiom and vimpat. DC carbamazepine and keppra. Patient also instructed to follow up with psychologist in regards to management of these psychosocial seizures. Family also informed to continue to motivate the patient to participate in family events and in her health. Can be discharged from a Neurology standpoint. Exam Vital Signs Temp Pulse Resp BP Pulse Ox O2 Del Method O2 Flow Rate 97.0 F 95 15 111/76 97 Room Air 2 09/30/25 16:00 09/30/25 17:46 09/30/25 16:00 09/30/25 17:46 09/30/25 16:00 09/30/25 16:00 09/30/25 13:05 Narrative Exam Physical Exam GENERAL: NAD, AAOx3 HEENT: Moist mucosa. Eyes open, symmetrical, & clear CARDIO: Heart RRR, no obvious murmurs PULM: No noted coughing/dyspnea CTA B/L, no R/W/R GI: Abdomen soft, nondistended, no pain on palpation. BSx4 SKIN/MSK/EXT: No wounds/rashes/edema/amputations, no pain on palpation. Pedal pulses present B/L NEURO: AAOx3, no focal neuro deficits, able to move all 4 extremities, Cranial nerves grossly intact, no gait disturbances Objective Labs 10/01/25 04:35 10/01/25 04:35 Labs: Laboratory Results - last 24 hr 09/30/25 04:50 WBC 7.6 RBC 4.69 Hgb 12.0 Hct 36.0 MCV 77 L MCH 25.6 MCHC 33.3 RDW Std Deviation 35.1 L Plt Count 80 L Neut % (Auto) 63 Lymph % (Auto) 28 [place] % (Auto) 8 Eos % (Auto) 1 Baso % (Auto) 0 Neut # (Auto) 4.8 Lymph # (Auto) 2.1 [place] # (Auto) 0.6 Eos # (Auto) 0.1 Baso # (Auto) 0.0 Immature Gran # (Auto) 0.02 H Absolute Nucleated RBC 0.00 Immature Gran % 0 Nucleated RBC % 0 Sodium 141 Potassium 4.5 Chloride 107 Carbon Dioxide 25.7 Anion Gap 8 BUN 9 Creatinine 0.7 Estim Creat Clear Calc 102.2 eGFR > 60 BUN/Creatinine Ratio 13 Glucose 89 Calculated Osmolality 278 Calcium 8.3 Corrected Calcium 8.4 L Phosphorus 3.4 Magnesium 1.8 Total Bilirubin 0.3 AST 20 ALT 26 Alkaline Phosphatase 77 Total Protein 5.7 Albumin 3.9 Globulin 1.8 L Albumin/Globulin Ratio 2.2 Quality Measures Quality Measures VTE prophylaxis Assessment & Plan Assessment Current Active Medications: Generic Name Dose Route Start Last Admin Trade Name Freq PRN Reason Stop Dose Admin Acetaminophen 650 mg 09/26/25 23:06 Acetaminophen 325 Mg Tablet PO 10/26/25 23:05 Q6H PRN Fever >100.4 or pain 1-3 Apixaban 5 mg 09/27/25 09:00 09/30/25 09:07 Apixaban 2.5 Mg Tablet PO 10/27/25 08:59 Not Given BID YOAV Carbamazepine 300 mg 09/27/25 09:00 09/30/25 09:05 Carbamazepine 100 Mg Chew PO 09/30/25 21:01 300 mg BID YOAV Administration Carvedilol 3.125 mg 09/27/25 17:45 09/30/25 17:46 Carvedilol 3.125 Mg Tablet PO 10/27/25 17:44 3.125 mg BIDWM YOAV Administration Aptiom( 0 ea 10/01/25 09:00 Eslicarbazepine) PO 10/31/25 08:59 600mg Tablet QDAY YOAV Docusate Sodium 100 mg 09/27/25 09:00 09/30/25 09:06 Docusate Sod 100 Mg Capsule PO 10/27/25 08:59 100 mg QDAY YOAV Administration Protocol Duloxetine HCl 20 mg 09/28/25 12:45 09/30/25 09:05 Duloxetine Hcl 20 Mg Capsule PO 10/27/25 08:59 20 mg QDAY YOAV Administration Famotidine 20 mg 09/27/25 09:00 09/30/25 09:06 Famotidine Inj 10 Mg/Ml Vial 2 Ml IVP 10/27/25 08:59 20 mg Q12HR YOAV Administration Hydroxychloroquine Sulfate 200 mg 09/27/25 09:00 09/30/25 09:06 Hydroxychloroquine 200 Mg Tablet PO 10/04/25 08:59 200 mg QDAY YOAV Administration Sodium Chloride 1,000 mls @ 125 mls/hr 09/30/25 09:26 09/30/25 17:45 Ns IV 10/01/25 01:25 125 mls/hr .Q8H YOAV Administration Lacosamide 200 mg 09/29/25 21:00 09/30/25 09:06 Lacosamide 50 Mg Tablet PO 10/29/25 20:59 200 mg BID YOAV Administration Lorazepam 2 mg 09/27/25 01:21 09/29/25 12:31 Lorazepam 2 Mg/Ml Vial IVP 10/02/25 01:20 2 mg Q8HR PRN Administration Seizure Activity Lorazepam 2 mg 09/29/25 12:41 Lorazepam 2 Mg/Ml Vial IVP X1 PRN Breakthrough seizures Ondansetron HCl 4 mg 09/26/25 23:06 09/30/25 18:27 Ondansetron Inj 2 Mg/Ml Inj 2 Ml IVP 10/26/25 23:05 4 mg Q6H PRN Administration NAUSEA OR VOMITING Protocol Plan 24-year-old female with multifocal epileptic seizures, antiphospholipid syndrome on hydroxychloroquine + Eliquis, history of atrial thrombus, and depression, admitted for breakthrough seizure-like episodes with abnormal EEG showing bilateral anterior temporal epileptiform discharges. #Psychogenic seizures # Seizure disorder ? breakthrough episodes Patient with breakthrough seizures at first tonic clonic followed by multiple episodes of what patieent describes as blank stare episodes for several days EEG shows abnormal temporal spikes, likely epileptic There seems to be a psychogenic component as well. 09/29 breakthrough seizure while on Vimpat 100 mg BID and carbamazepine 300 mg BID - Ativan for breakthrough seizures - at the time of discharge can be prescribed Vimpat and Aptiom and DC keppra and carbamazepine - Follow up as outpatient for possible video EEG monitoring # Depression # Thrombocytopenia # Antiphospholipid syndrome (APLA) # History of atrial thrombus # Pulmonary mass - as per primary team Case discussed with my attending Dr. Kylah Arizmendi MD PGY-2 Attending Provider Attestation/Addendum I personally have seen and examined the patient at the bedside and I agreed with the resident's findings, assessment and plan of care. Patient does have true seizures based on the abnormal EEG and almost all the episodes that she has experienced lately are psychogenic nonepileptic seizures. Patient needs psychological evaluation and counseling to manage the psychosocial issues upon discharge. She is stable from neurology standpoint for discharge on Aptiom 1200 mg a day and Vimpat 200 mg twice a day. I will see her back in clinic as scheduled. Will consider doing video EEG monitoring if needed as an outpatient
[2025-09-30] MEDS: APIXABAN 2.5 MG TABLET 5 MG PO (21:27)
[2025-10-01] VITALS: BP 108/69; PULSE 62; PULSE 82; RESP 17; TEMP 36.1; O2SAT 100
[2025-10-01] MEDS: LACOSAMIDE 50 MG TABLET 200 MG PO ×2 (01:52→09:16)
[2025-10-01 04:00] VITALS: BP 123/77; PULSE 79; PULSE 80; RESP 16; TEMP 36.1; O2SAT 99
[2025-10-01 05:18] LABS: Basophils # (Auto) 0.0 Thou/mm3 (0.0-0.2); Basophils % (Auto) 0 % (0-2.5); Eosinophils # (Auto) 0.1 Thou/mm3 (0.0-0.5); Eosinophils % (Auto) 1 % (0-10); Hematocrit 36.3 % (36.0-46.0); Hemoglobin 12.2 g/dL (12.0-16.0); Immature Granulocytes Auto 0.03 Thou/mm3 (0.00-0.00); Lymphocytes # (Auto) 1.8 Thou/mm3 (1.0-4.8); Lymphocytes % (Auto) 29 % (10-50); Mean Corpuscular HGB Conc 33.6 g/dl (31.0-37.0); Mean Corpuscular Hemoglobin 26.2 pg (25.0-35.0); Mean Corpuscular Volume 78 fL (80-100); Monocytes # (Auto) 0.5 Thou/mm3 (0.0-0.8); Monocytes % (Auto) 8 % (0-12); Neutrophils # (Auto) 3.9 Thou/mm3 (1.8-7.7); Neutrophils % (Auto) 62 % (37-80); Nucleated Red Blood Cell # 0.00 Thou/mm3 (0.00-0.00); Nucleated Red Blood Cell % 0 /100 WBC (0); RDW Standard Deviation 37.1 fL (36.4-46.3); Red Blood Count 4.65 Miln/mm3 (4.00-5.20); White Blood Count 6.3 Thou/mm3 (3.6-11.0)
[2025-10-01 05:30] LABS: Alanine Aminotransferase 21 U/L (10-49); Albumin, Serum 4.0 gm/dL (3.5-5.0); Albumin/Globulin Ratio 2.1 (1.2-2.2); Alkaline Phosphatase 79 U/L (46-116); Anion Gap 11 (7-16); Aspartate Amino Transferase 17 U/L (0-34); BUN/Creatinine Ratio 10 Ratio (12-20); Bilirubin,Total 0.3 mg/dL (0.3-1.2); Blood Urea Nitrogen 7 mg/dL (9-23); Calcium 8.5 mg/dL (8.3-10.6); Calcium (Corrected) 8.5 mg/dL (8.5-10.1); Carbon Dioxide 24.8 mMol/L (20.0-31.0); Chloride 108 mMol/L (98-107); Creatinine (Component) 0.7 mg/dL (0.6-1.3); Estimated Creatinine Clearance 102.2 mL/min (>60); Globulin 1.9 gm/dL (2.3-3.5); Glucose 81 mg/dL (74-106); Magnesium 1.8 mg/dL (1.6-2.6); Osmolality,Calculated 283 (275-295); Phosphorous 3.2 mg/dL (2.4-5.1); Potassium 4.1 mMol/L (3.4-5.1); Sodium 144 mMol/L (136-145); Total Protein 5.9 gm/dL (5.7-8.2); eGFR > 60 See Note
[2025-10-01 06:13] LABS: Platelet Count 79 Thou/mm3 (140-440)
[2025-10-01 08:00] VITALS: BP 151/92; PULSE 107; PULSE 98; RESP 18; TEMP 36.4; O2SAT 98
[2025-10-01 08:09] LABS: Slide Review Platelets confirmed
[2025-10-01 09:17] VITALS: BP 151/92; PULSE 107
[2025-10-01] MEDS: APIXABAN 2.5 MG TABLET 5 MG PO (09:17)
[2025-10-01] MEDS: DOCUSATE SOD 100 MG CAPSULE PO (09:18)
[2025-10-01] MEDS: HYDROXYCHLOROQUINE 200 MG TABLET PO (09:18)
[2025-10-01] MEDS: DULoxetine HCL 20 MG CAPSULE PO (09:18)
--- NOTE | 2025-10-01 09:58 | ESPR_ITS ---
Documentation for date of: 10/01/25 Subjective Subjective Interval history: She was seen at bedside today . she did not have any seizures. she complains of dizziness when she moves her head associated with head spinning sensation and more pronounced during this hospitalization which she attributes to the medications. She denies any ringing sensation or any blackouts.Trans esophageal echo done yesterday which showed the following findings 1. SEGUNDO showed significantly calcified tricuspid leaflet especially the septal leaflet including the adjacent right atrial wall. Measuring around 3 x 3 x 2 cm. Mild tricuspid regurgitation noted. Mean pressure across the tricuspid valve was 3 mmHg. Brought differential includes possible healed old vegetations with calcification or congenital tricuspid calcification or benign tumor and unlikely thrombus. Recommend clinical correlation along with cardiac MRI. 2. Left ventricle size is normal and systolic function is normal. Estimated ejection fraction is 60-65%. There is indeterminate diastolic function. 3. Right ventricle chamber size is normal and systolic function is normal. 4. There is trace mitral valve regurgitation, trace PI and mild TR. 5. No evidence of PFO or ASD. There was no LA or EVA thrombus. Patient is hemodynamically stable and no evidence of any heart failure at the present point of time. Incidental finding that was noted on the chest x-ray as well as the CT scan but will require further workup. Patient recommended to follow-up with her tobacco blender in [place] will need a cardiac MRI for further evaluation. Exam Vital Signs Temp Pulse Resp BP Pulse Ox O2 Del Method O2 Flow Rate 97.6 F 107 H 18 151/92 H 98 Room Air 2 10/01/25 08:00 10/01/25 09:17 10/01/25 08:00 10/01/25 09:17 10/01/25 08:00 10/01/25 04:00 09/30/25 13:05 Objective Labs 10/01/25 04:35 10/01/25 04:35 Labs: Laboratory Results - last 24 hr 10/01/25 04:35 WBC 6.3 RBC 4.65 Hgb 12.2 Hct 36.3 MCV 78 L MCH 26.2 MCHC 33.6 RDW Std Deviation 37.1 Plt Count 79 L Neut % (Auto) 62 Lymph % (Auto) 29 Jewell % (Auto) 8 Eos % (Auto) 1 Baso % (Auto) 0 Neut # (Auto) 3.9 Lymph # (Auto) 1.8 Jewell # (Auto) 0.5 Eos # (Auto) 0.1 Baso # (Auto) 0.0 Immature Gran # (Auto) 0.03 H Absolute Nucleated RBC 0.00 Immature Gran % 1 H Nucleated RBC % 0 Sodium 144 Potassium 4.1 Chloride 108 H Carbon Dioxide 24.8 Anion Gap 11 BUN 7 L Creatinine 0.7 Estim Creat Clear Calc 102.2 eGFR > 60 BUN/Creatinine Ratio 10 L Glucose 81 Calculated Osmolality 283 Calcium 8.5 Corrected Calcium 8.5 Phosphorus 3.2 Magnesium 1.8 Total Bilirubin 0.3 AST 17 ALT 21 Alkaline Phosphatase 79 Total Protein 5.9 Albumin 4.0 Globulin 1.9 L Albumin/Globulin Ratio 2.1 Misc Test Result Platelets confirmed Quality Measures Quality Measures VTE prophylaxis Assessment & Plan Assessment Current Active Medications: Generic Name Dose Route Start Last Admin Trade Name Freq PRN Reason Stop Dose Admin Acetaminophen 650 mg 09/26/25 23:06 Acetaminophen 325 Mg Tablet PO 10/26/25 23:05 Q6H PRN Fever >100.4 or pain 1-3 Apixaban 5 mg 09/27/25 09:00 10/01/25 09:17 Apixaban 2.5 Mg Tablet PO 10/27/25 08:59 5 mg BID YOAV Administration Carvedilol 3.125 mg 09/27/25 17:45 10/01/25 09:17 Carvedilol 3.125 Mg Tablet PO 10/27/25 17:44 3.125 mg BIDWM YOAV Administration Aptiom( 0 ea 10/01/25 09:00 Eslicarbazepine) PO 10/31/25 08:59 600mg Tablet QDAY YOAV Docusate Sodium 100 mg 09/27/25 09:00 10/01/25 09:18 Docusate Sod 100 Mg Capsule PO 10/27/25 08:59 100 mg QDAY YOAV Administration Protocol Duloxetine HCl 20 mg 09/28/25 12:45 10/01/25 09:18 Duloxetine Hcl 20 Mg Capsule PO 10/27/25 08:59 20 mg QDAY YOAV Administration Famotidine 20 mg 09/27/25 09:00 10/01/25 09:20 Famotidine Inj 10 Mg/Ml Vial 2 Ml IVP 10/27/25 08:59 Not Given Q12HR [facility] Hydroxychloroquine Sulfate 200 mg 09/27/25 09:00 10/01/25 09:18 Hydroxychloroquine 200 Mg Tablet PO 10/04/25 08:59 200 mg QDAY YOAV Administration Lacosamide 200 mg 09/29/25 21:00 10/01/25 09:16 Lacosamide 50 Mg Tablet PO 10/29/25 20:59 200 mg BID YOAV Administration Lorazepam 2 mg 09/27/25 01:21 09/29/25 12:31 Lorazepam 2 Mg/Ml Vial IVP 10/02/25 01:20 2 mg Q8HR PRN Administration Seizure Activity Lorazepam 2 mg 09/29/25 12:41 Lorazepam 2 Mg/Ml Vial IVP X1 PRN Breakthrough seizures Ondansetron HCl 4 mg 09/26/25 23:06 09/30/25 18:27 Ondansetron Inj 2 Mg/Ml Inj 2 Ml IVP 10/26/25 23:05 4 mg Q6H PRN Administration NAUSEA OR VOMITING Protocol Plan Lakesha is a 24-year-old female with past medical history of seizure disorder, APLA, depression, anxiety presented to the ED for worsening seizures frequency. She was admitted for seizures and cardiology was consulted for CT findings of Rt atrial Mass. # Right Atrial Mass with calcification #History of right atrial thrombus on anticoagulation started in november [address] Laird and he apparently told the patient that it is right atrial thrombus and started her on Eliquis 5 mg twice daily She has having history of APLA, having symptoms of dizziness while lifting weights and occasional positional change. She is also having episodes of palpitations which are short-lived. CT chest done showing right atrial mass -40X 26 mm in the right atrium and 9 mm calcification at the posterior margin of the right atrium. Trans Thoracic Echocardiogram completed today on 09/29/2025 showed 1. Calcified echodensity with mobile extension noted on the tricuspid valve and also possibly attached to the right atrium valve measuring 3 x 3 x 2 cm. Differential includes mass with possible tumor versus old calcified vegetations. Mild tricuspid regurgitation noted. Recommend SEGUNDO for further evaluation. Rest of the valves appear normal. 2. Left ventricle size is normal and systolic function is normal. Estimated ejection fraction is 60-65%. There is grade I diastolic dysfunction. 3. Right ventricle chamber size is normal and systolic function is normal. Estimated RVSP is 32 mmHg. Mild HTN. 4. There is trace mitral valve regurgitation and mild pulmonary valve regurgitation. 5. Not well visualized IVC with estimated RA pressure 8 mmHg. Broad differential which includes calcified right atrial thrombus, calcified cardiac mass / calcified amorphous benign tumor, degenerative valve disease including previous history of rheumatic heart disease, carcinoid heart disease, severe degenerative calcific disease but less likely as she does not have any ESRD versus congenital calcified tricuspid valve and less likely malignancy. Trans esophageal echo done yesterday which showed the following findings 1. SEGUNDO showed significantly calcified tricuspid leaflet especially the septal leaflet including the adjacent right atrial wall. Measuring around 3 x 3 x 2 cm. Mild tricuspid regurgitation noted. Mean pressure across the tricuspid valve was 3 mmHg. Brought differential includes possible healed old vegetations with calcification or congenital tricuspid calcification or benign tumor and unlikely thrombus. Recommend clinical correlation along with cardiac MRI. 2. Left ventricle size is normal and systolic function is normal. Estimated ejection fraction is 60-65%. There is indeterminate diastolic function. 3. Right ventricle chamber size is normal and systolic function is normal. 4. There is trace mitral valve regurgitation, trace PI and mild TR. 5. No evidence of PFO or ASD. There was no LA or EVA thrombus. Patient is hemodynamically stable and no evidence of any heart failure at the present point of time. Incidental finding that was noted on the chest x-ray as well as the CT scan but will require further workup. Patient recommended to follow-up with her tobacco blender in [place] will need a cardiac MRI for further evaluation. # Seizure disorder She has been having increased frequency of seizures and primary team consulted neurology. EEG findings correlated with her seizure disorder. Apparently patient was told she had a mass in her brain as well. ?Manage as per neurology and primary team. # Antipohospholipid antibody syndrome. #? PCOS and irregular menstrual cycle. She has been having irregular menstrual cycles with heavy bleeding. She is obese, short stature and possibly early menarche. ?Recommended gynecology workup. # Thrombocytopenia # Depression # Anxiety ?Manage as per primary team Discussed this case with Dr. Breanna Adame MD PGY1 Attending Provider Attestation/Addendum I have personally seen and examined the patient separately on the above date of service and discussed the plan of care with the resident. I reviewed the resident Dr. Yuan Adame consultation progress note and agree with the resident findings and plan in the note above and have also edited the documentation to reflect my findings and plan. Ezra Carlos M.D. Interventional Cardiology
--- NOTE | 2025-10-01 10:59 | ESDS_ITS ---
<Statement entered by Yue Jean MD - 10/01/25 14:17> Patient was seen and examined by me personally. I have reviewed the below documentation by the team resident and agree with its findings with any exceptions as below. Discharge plan was discussed with the attending, Dr. Guaman. Around 11:30 am patient noted by nursing staff to have shaking movements of the body and fluttering eyelids, complaining that her throat is closing and she is having a seizure. Went to bedside along with Dr. Denson to speak to the patient who was talking throughout all movement episodes. Suspecting pseudoseizures... which Neurology agrees with. Patient was discharged on lacosamide 200 mg BID and eslicarbazepine 1200 mg qday. Recommended patient see her outpatient Neurologist. Recommended that the patient follow up with a cardiothoracic surgeon regarding the right atrial mass, cardiology recommended cardiac MRI. Yue Jean, PGY-3 Planned Discharge Date 10/01/25 DS: Providers Provider Date of admission: 09/29/25 08:35 Primary care physician: Physician No Primary/Family Admitting Provider: Catrachita Larson MD Attending Provider on Admission: Catrachita Larson MD Consults: 09/26/25 22:30 Consult to Neurology / Tele-Neurology Stat Comment: Consulting Provider: Oziel Montero 09/29/25 08:31 Consult to Cardiology Routine Comment: Consulting Provider: Ezra Carlos Attending Provider on DC: Leonidas Guaman, Discharging Provider: Anthony Denson MD DS: Diagnosis Problem List Completed Was Problem List Reviewed/Reconciled?: Yes Hospital Course Hospital Course Hospital course: Summary: 24-year-old female with a past medical history of multifocal epileptic seizures, antiphospholipid syndrome, depression, atrial thrombus (eliquis and coreg) who is currently on Aptiom 1200 mg daily, Keppra 500 mg daily, who presented to ED after sister noted her to be somewhat out of it concerning for post-ictal state of seizures. Hospital: During patient's hospital course, she was initially treated with carbamazepine PO and Keppra PO for her seizure-like episodes. 09/27 EEG showed abnormal localized spike and wave activity of the bilateral anterior temporal and temporal areas consistent with seizures. However, on 09/29 patient had an apparent episode of breakthrough seizure that was highly atypical (patient was fully conscious throughout) and patient's anti-epileptic regimen was changed to Vimpat PO and Aptiom PO instead. She continued to have atypical seizures afterwards which are suspected to be likely psychogenic in etiology. In other news, two calcified masses were visualized in the right atrium on 09/[address] and patient later underwent an 09/28 TTE and 09/30 SEGUNDO for further visualization and evaluation. While admitted, she was also continued on hydroxychloroquine, Eliquis, and Coreg for her history of antiphospholipid syndrome. By 10/01, patient was deemed clinically stabilized and discharged with a new anti- epileptic regimen and told to follow-up with Neurology in the out-patient setting. Patient is safe to discharge. Further discharge instructions below. Discharge Recommendations: -Follow up with PCP within 1 week of discharge -Follow up with your neurologist within 1 week of discharge -Your medications for seizure disorder have been changed; please take the following medications as listed below: 1. Lacosamide (Vimpat) 200 mg by mouth twice per day 2. Eslicarbazepine (Aptiom) 1200 mg by mouth once per day -Please stop taking the following medications for seizure disorder that you may have been taking previously: 1. Carbamazepine (Tegretol) 2. Levetiracetam (Keppra) -Recommend following-up with a cardiothoracic surgeon regarding the right atrial mass visualized on transthoracic and transesophageal echocardiogram -Continue the rest of your medications as previously prescribed -Return to the ED or call EMS if symptoms return and/or worsen. Hospital Diagnoses: # Seizure disorder ? breakthrough episodes # Depression # Thrombocytopenia # Antiphospholipid syndrome (APLA) # History of atrial thrombus # Pulmonary mass Status at Discharge Cognitive/Behavioral Status at Discharge: stable Functional Status at Discharge: independent ambulation Overall Status at Discharge: patient is back to baseline Patient's care plan was discussed with my attending, Dr. Guaman, and senior resident, Dr. Jean. Anthony Denson, DO Internal Medicine, PGY-1 Time Spent with Patient Time attestation: Total time spent providing and/or coordinating discharge services: Time spent: Greater than 30 minutes Exam Vital Signs Temp Pulse Resp BP Pulse Ox O2 Del Method O2 Flow Rate 97.6 F 107 H 18 151/92 H 98 Room Air 2 10/01/25 08:00 10/01/25 09:17 10/01/25 08:00 10/01/25 09:17 10/01/25 08:00 10/01/25 04:00 09/30/25 13:05 Narrative Exam General: Awake, alert, oriented ?4, speaking clearly, no acute distress. HEENT: NC/AT. PERRLA. EOMI. No tongue trauma. Oral mucosa moist. No scleral icterus. Neck: Supple, no JVD, no meningismus. Cardiac: Regular rate and rhythm. Normal S1/S2. No murmurs, rubs, or gallops. Respiratory: Non-labored breathing on room air. Lungs clear to auscultation bilaterally. No wheezes/rales/rhonchi. Abdomen: Soft, non-tender, non-distended. Normal bowel sounds. Extremities: No edema. Warm and well-perfused. No tenderness. Neuro: -Alert and oriented ?4. -Cranial nerves grossly intact. -5/5 strength in UE and LE bilaterally. -Normal coordination. -No tremor, no focal deficits. -Gait not assessed but patient moves all extremities spontaneously. Skin: Warm, dry, intact. No bruising or rashes. Psych: Appropriate mood and affect. Good insight and judgment. Discharge Plan Plan Patient Disposition: HOME (Self Care) Patient condition on transfer: Stable Care Plan Goals: Discharge Recommendations: -Follow up with PCP within 1 week of discharge -Follow up with your neurologist within 1 week of discharge -Your medications for seizure disorder have been changed; please take the following medications as listed below: 1. Lacosamide (Vimpat) 200 mg by mouth twice per day 2. Eslicarbazepine (Aptiom) 1200 mg by mouth once per day -Please stop taking the following medications for seizure disorder that you may have been taking previously: 1. Carbamazepine (Tegretol) 2. Levetiracetam (Keppra) -Recommend following-up with a cardiothoracic surgeon regarding the right atrial mass visualized on transthoracic and transesophageal echocardiogram - recommend cardiac MRI -Continue the rest of your medications as previously prescribed -Return to the ED or call EMS if symptoms return and/or worsen. Prescriptions/Referrals Prescriptions/Med Rec: New lacosamide 200 mg tablet 200 mg PO BID 30 Days Qty: 60 0RF Continued cholecalciferol (vitamin D3) 1,250 mcg (50,000 unit) capsule 50,000 unit PO .[id number] duloxetine 20 mg capsule,delayed release(DR/EC) 20 mg PO QDAY eslicarbazepine [Aptiom] 600 mg tablet 1,200 mg PO QDAY Eliquis 5 mg tablet 5 mg PO BID carvedilol 3.125 mg tablet 3.125 mg PO BID hydroxychloroquine [Plaquenil] 200 mg tablet 200 mg PO QDAY Discontinued levetiracetam 500 mg tablet 500 mg PO QDAY Referrals: No Primary/Family,Physician [Primary Care Provider] Patient/Caregiver Discharge Instructions Discharge Activity: activity as tolerated Education Materials: Treating Epilepsy: Medicines, Self-Care for Epilepsy, Epilepsy: Safety During a Seizure, ED Conversion Disdr Conversion Reac Print Language: Faroese Stand Alone Forms: Vane Award Info., Patient Portal Info Letter Discharge Order Discharge Orders: Discharge (Routine); Ordered 10/01/25 Ordered By: Yue Jean Quality Discharge Quality Measures VTE prophylaxis Attestestation Attestkevin flynn I have discussed and was present for the essential components of the discharge history, physical examination, diagnosis, and discharge treatment plan with the resident. I agree with the patient's discharge care as documented by the resident and amended herein by me. Papito Guaman DO. The patient understood all discharge instructions, all questions were answered satisfactorily. The patient was instructed to return to the Emergency Department is symptoms worsened or persisted. Patient will need cardiac MRI for cardiology recommendations, will also need to follow-up with neurology within 1 week of discharge, will continue Vimpat 200 mg twice daily and Aptiom 1200 mg once per day. We have discontinued carbamazepine and Keppra per neurology aurelia mmendations. See resident note above for additional details in regards to hospital stay, the patient was stable, afebrile, tolerating p.o. intake and ambulatory at time of discharge home. Although this document has been carefully reviewed, there may still be some phonetic and other typographical errors. These errors are purely grammatical due to imperfections in the software program and should not be construed in any way to compromise the substance of the patient's medical care during this visit.
[2025-10-01 12:00] VITALS: BP 151/104; PULSE 98; RESP 25; TEMP 36.7; O2SAT 98
[2025-10-03 06:45] LABS: Prolactin* 13.2 ng/mL
== END 2025-10-01 15:03 | disposition home or self-care (01) | DRG 53 ==
LOC: SERX 21:16 → SERHOLD 23:35 → S3SX 09-27 00:59
PROVIDERS: Internal Medicine Cardiovascular Disease; Physician Assistant; Psychiatry & Neurology Neurology; Student in an Organized Health Care Education/Training Program; Admitting Provider Student in an Organized Health Care Education/Training Program; Emergency Provider Emergency Medicine; Visit Provider Student in an Organized Health Care Education/Training Program
PROC: (CPT 93312; 2025-09-30 12:30)
DX: G40.909 Epilepsy, unspecified, not intractable, without status epilepticus (principal); F32.A Depression, unspecified; D68.61 Antiphospholipid syndrome; D69.6 Thrombocytopenia, unspecified; R91.8 Other nonspecific abnormal finding of lung field; F41.9 Anxiety disorder, unspecified; I51.3 Intracardiac thrombosis, not elsewhere classified; I10 Essential (primary) hypertension; E66.9 Obesity, unspecified; Z79.01 Long term (current) use of anticoagulants; Z79.899 Other long term (current) drug therapy; Z88.2 Allergy status to sulfonamides; Z88.8 Allergy status to other drugs, medicaments and biological substances
CPT/HCPCS: 36415; 70450; 71046; 71250; 80053; 80156; 80307; 80320; 81001; 81025; 82550; 83605; 83690; 83735; 84100; 84146; 84443; 84484; 85025; 85610; 85730; 86331; 86635; 93005; 93306; 93312; 95816; 96361; 96374; 99152; 99283; G0378; J2060; J2250; J2405; J3010; J3490; J7030; J7120; A9270; G0480